=== PATIENT | male | born 1945 | race Caucasian/White ===

== ENCOUNTER 2016-12-12 14:49 | Emergency (ER) | payer OTHER ==
[~2016-12-12] VITALS: Ht 170.2 cm; Wt 88.7 kg
[~2016-12-12 14:49] MED LIST: ADVAIR 250-501 EACH IH; ADVAIR 250/501 DISK IH; ALBUTEROL0.63 MG/3 IH; ALUM-MAG HYDRO360 ML PO; AMLODIPINE BESYL5 MG PO; ASPIR 8181 M1 PO; ATORVASTATIN CA40 MG PO; AZITHROMYCIN250 MG1 PO; BROVANA15 MCG/2 M IH; CILOSTAZOL100 MG PO; CIPRO500 MG PO; COREG6.25 M1 PO; Coreg PO; DAILY VALUE1 EACH PO; DAILY VITE1 EAC1 PO; DUONEB 2.5-0.5 M3 ML AEROSOL; ENDOCET 5-3251 EACH PO; Ecotrin PO; FEOSOL325 MG PO; FINASTERIDE5 MG PO; GLIPIZIDE5 MG PO; GLUCOPHAGE1000 M1 PO; GLUCOPHAGE1000 MG PO; GLUCOSE GEL15 GM PO; GLUCOTROL5 MG PO; HUMALOG100 UNIT/2 SC; KLOR-CON 1010 MEQ PO; KLOR-CON M1010 MEQ PO; LANTUS 10100 UNITS/ SC; LANTUS 3 M100 UNITS1 SC; LASIX20 MG PO; LASIX40 MG PO; LEVAQUIN500 MG PO; LEVOTHYROXINE150 MCG PO; LIPITOR40 MG PO; LITE COAT ASPI325 M1 PO; LO-DOSE ASPIRIN81 M2 PO; LOTRIMIN C1 APPLICAT TP; METFORMIN HCL500 MG PO; MONTELUKAST SOD10 MG PO; MULTIVITAMIN1 EAC1 PO; NICODERM CQ1 EAC2 TD; NITROSTAT0.4 MG SL; NORVASC5 MG PO; OMEPRAZOLE20 M3 PO; OMEPRAZOLE20 MG PO; OMEPRAZOLE40 M1 PO; PERCOCET 5/31 TABLET PO; PHENERGAN12.5 M1 PO; PNEUMOVAX 230.5 ML IM; PREDNISONE5 M2 PO; PREDNISONE5 MG PO; PRILOSEC20 MG PO; PRINIVIL20 MG PO; PROVENTIL2.5 MG/3 M IH; PULMICORT1 MG/2 ML IH; ROBITUSSIN DM118 ML PO; ROBITUSSIN100 MG/5 M PO; SINGULAIR10 MG PO; SPIRIVA1 INHALATI IH; ST. JOSEPH ASPI81 MG PO; SYMBICORT60 INHALAT IH; SYNTHROID125 MCG PO; SYNTHROID150 MCG PO; Singulair PO; TAMSULOSIN HCL0.4 MG PO; TUSSIN DM LIQU118 ML PO; TYLENOL ARTHRI650 MG PO; TYLENOL REGULA325 MG PO; TYLENOL325 M1 PO; ULTRAM50 MG PO; ZESTRIL20 MG PO; ZOLOFT100 M1 PO; ZOLOFT100 MG PO; ZYVOX600 MG PO
[2016-12-12] MEDS ORDERED: CLARITIN10 M3 PO (15:01)
[2016-12-12] MEDS ORDERED: ADVAIR HFA120 INHALA IH (15:14)
[2016-12-12] MEDS ORDERED: ROBITUSSIN DM118 ML PO (15:21)
[2016-12-12 15:35] LABS: BASOPHIL COUNT 0.1 K/uL (0-0.1); EOSINOPHIL (%) 6.6 % (0-5); EOSINOPHIL COUNT 0.5 K/uL (0-0.3); HEMATOCRIT 30.4 % (38.0-50.0); IMMATURE GRANULOCYTE (%) 0.3 % (0.0-0.7); INSTRUMENT ABS NEUTROPHIL CT 4.9 K/uL; LYMPHOCYTE COUNT 1.3 K/uL (1.0-2.8); MCH 28.5 PG (29.0-34.0); MCHC 33.2 G/DL (30.0-36.0); MCV 85.9 FL (86-99); MEAN PLAT.VOLUME 8.7 uM^3 (9.0-12.4); MONOCYTE (%) 8.7 % (3-12); MONOCYTE COUNT 0.7 K/uL (0-0.8); NEUTROPHIL (%) 65.8 % (45-76); NEUTROPHIL COUNT 4.9 K/uL (1.8-6.4); PLATELET COUNT 223 K/uL (156-360); RBC DIS.WIDTH-CV 13.3 % (11.8-14.6); RBC DIS.WIDTH-SD 41.7 % (39-53); RED BLOOD COUNT 3.54 M/uL (4.00-5.50); WHITE BLOOD COUNT 7.4 K/uL (4.1-10.2)
[2016-12-12 15:44] LABS: CHLORIDE 106 mEq/L (99-109); POTASSIUM 3.2 mEq/L (3.7-5.4); SODIUM 140 mEq/L (136-147)
[2016-12-12 15:44] LABS: INTER. NORMALIZED RATIO 1.1; PROTHROMBIN TIME 10.9 (9.2-11.2)
[2016-12-12 15:46] LABS: GLUCOSE 160 mg/dL (70-99)
[2016-12-12 15:47] LABS: ANION GAP 11 MEQ/L (2-14)
[2016-12-12 15:48] LABS: TOTAL BILIRUBIN 0.3 mg/dL (0.0-1.0)
[2016-12-12 15:50] LABS: ALKALINE PHOSPHATASE 93 IU/L (3-129); GFR ESTIMATE (CALCULATED) 33 mL/min/
[2016-12-12 15:51] LABS: UREA NITROGEN (BUN) 33 mg/dL (9-23)
[2016-12-12 15:53] LABS: LIPASE 191 U/L (1.0-51.0)
[2016-12-12 15:55] LABS: TROP-I INTERPRETATION NEGATIVE; TROPONIN-I 0.09 ng/mL (0.0-0.30)
[2016-12-12 18:17] VITALS: BP 159/76
== END 2016-12-12 18:40 ==
LOC: EME → EDBD 14:49 → EME 14:49
PROVIDERS: Emergency Medicine
DX: R11.10 Vomiting, unspecified (principal); N28.9 Disorder of kidney and ureter, unspecified; I50.9 Heart failure, unspecified; E11.9 Type 2 diabetes mellitus without complications; Z79.4 Long term (current) use of insulin; E78.5 Hyperlipidemia, unspecified; K21.9 Gastro-esophageal reflux disease without esophagitis; I10 Essential (primary) hypertension; J44.9 Chronic obstructive pulmonary disease, unspecified; J45.909 Unspecified asthma, uncomplicated; I73.9 Peripheral vascular disease, unspecified; E03.9 Hypothyroidism, unspecified; F32.9 Major depressive disorder, single episode, unspecified; F41.9 Anxiety disorder, unspecified
CPT/HCPCS: 74022; 80053; 81003; 83690; 84484; 85025; 85610; 93005; 99281; 99285

== ENCOUNTER 2017-01-19 22:02 | Inpatient (IN) | payer OTHER ==
[~2017-01-19] VITALS: Ht 157.5 cm; Wt 87.6 kg
[~2017-01-19 22:02] MED LIST changes: +ADVAIR HFA120 INHALA IH; +CLARITIN10 M3 PO; +LEVOFLOXACIN750 MG PO; +ROCEPHIN1000 MG IM
[2017-01-19 22:35] LABS: HEMATOCRIT 28.4 % (38.0-50.0); MCH 27.6 PG (29.0-34.0); MCHC 30.6 G/DL (30.0-36.0); MCV 90.2 FL (86-99); MEAN PLAT.VOLUME 8.9 uM^3 (9.0-12.4); PLATELET COUNT 227 K/uL (156-360); RBC DIS.WIDTH-CV 14.9 % (11.8-14.6); RBC DIS.WIDTH-SD 47.5 % (39-53); RED BLOOD COUNT 3.15 M/uL (4.00-5.50); WHITE BLOOD COUNT 6.9 K/uL (4.1-10.2)
[2017-01-19 22:46] LABS: CHLORIDE 103 mEq/L (99-109); POTASSIUM 4.7 mEq/L (3.7-5.4)
[2017-01-19 22:47] LABS: SODIUM 134 mEq/L (136-147)
[2017-01-19 22:48] LABS: GLUCOSE 100 mg/dL (70-99)
[2017-01-19 22:49] LABS: ANION GAP 8 MEQ/L (2-14)
[2017-01-19 22:51] LABS: TOTAL BILIRUBIN 0.3 mg/dL (0.0-1.0)
[2017-01-19 22:52] LABS: ALKALINE PHOSPHATASE 73 IU/L (3-129)
[2017-01-19 22:52] LABS: GFR ESTIMATE (CALCULATED) 26 mL/min/; UREA NITROGEN (BUN) 39 mg/dL (9-23)
[2017-01-19 22:55] LABS: DIRECT BILIRUBIN 0.2 mg/dL (0.0-0.3)
[2017-01-19 22:56] LABS: LIPASE 35 U/L (1.0-51.0)
[2017-01-19 22:59] LABS: TROP-I INTERPRETATION NEGATIVE; TROPONIN-I 0.04 ng/mL (0.0-0.30)
[2017-01-20 03:24] VITALS: BP 109/59
[2017-01-20 06:02] LABS: POINT-OF-CARE METER ID UU13113725
[2017-01-20 09:57] VITALS: BP 95/58
[2017-01-20 15:51] LABS: ADD MIUA? NO; BILIRUBIN NEGATIVE; BLOOD NEGATIVE; COLOR STRAW ((YELLOW)); GLUCOSE (STRIP) NEGATIVE; KETONES NEGATIVE; LEUKOCYTES NEGATIVE; NITRITE NEGATIVE; PROTEIN (STRIP) NEGATIVE; SPECIFIC GRAVITY 1.008 (1.000-1.030); UCUL ADDED? NO; UROBILINOGEN 0.2 MG/DL (0.2-1.0)
[2017-01-20] MEDS ORDERED: ZOFRAN4 MG PO (16:05)
[2017-01-20 16:32] VITALS: BP 127/62
[2017-01-20 16:37] LABS: POINT-OF-CARE METER ID UU13113725
[2017-01-21] VITALS: BP 101/57
[2017-01-21 04:00] VITALS: BP 101/57
[2017-01-21 06:33] LABS: MCHC 30.8 G/DL (30.0-36.0); MCV 90.9 FL (86-99); PLATELET COUNT 189 K/uL (156-360); RBC DIS.WIDTH-SD 48.5 % (39-53); RED BLOOD COUNT 2.86 M/uL (4.00-5.50); WHITE BLOOD COUNT 5.1 K/uL (4.1-10.2)
[2017-01-21 07:00] VITALS: BP 100/58
[2017-01-21 07:12] LABS: ALKALINE PHOSPHATASE 62 IU/L (3-129); ANION GAP 8 MEQ/L (2-14); CHLORIDE 108 MEQ/L (99-109); GFR ESTIMATE (CALCULATED) 26 mL/min/; GLUCOSE 86 mg/dL (70-99); POTASSIUM 3.9 MEQ/L (3.7-5.4); SAMPLE HEMOLYSIS CHECK 0; SAMPLE ICTERIC CHECK 0; SAMPLE LIPEMIA CHECK 0; SODIUM 140 MEQ/L (136-147); TOTAL BILIRUBIN 0.3 MG/DL (0.0-1.0); UREA NITROGEN (BUN) 37 mg/dL (9-23)
[2017-01-21 11:46] LABS: POINT-OF-CARE METER ID UU13113725
[2017-01-21] MEDS ORDERED: LANTUS 10100 UNITS/ SC (12:13)
[2017-01-21] MEDS ORDERED: HUMALOG100 UNIT/1 SC (12:19)
[2017-01-21] MEDS ORDERED: LEVOFLOXACIN750 MG PO (12:22)
[2017-01-21 15:15] VITALS: BP 100/59
[2017-01-21 16:33] LABS: POINT-OF-CARE METER ID UU13113725
[2017-01-21 20:11] VITALS: BP 114/57
[2017-01-22] VITALS (14 sets, daily range): BP systolic 92–137; BP diastolic 55–78
[2017-01-22 07:08] LABS: BASOPHIL COUNT 0.1 K/uL (0-0.1); EOSINOPHIL (%) 6.3 % (0-5); EOSINOPHIL COUNT 0.3 K/uL (0-0.3); HEMATOCRIT 25.5 % (38.0-50.0); IMMATURE GRANULOCYTE (%) 0.2 % (0.0-0.7); INSTRUMENT ABS NEUTROPHIL CT 2.4 K/uL; LYMPHOCYTE COUNT 1.5 K/uL (1.0-2.8); MCH 28.2 PG (29.0-34.0); MCV 91.1 FL (86-99); MEAN PLAT.VOLUME 9.3 uM^3 (9.0-12.4); MONOCYTE (%) 10.6 % (3-12); MONOCYTE COUNT 0.5 K/uL (0-0.8); NEUTROPHIL (%) 50.1 % (45-76); NEUTROPHIL COUNT 2.4 K/uL (1.8-6.4); PLATELET COUNT 194 K/uL (156-360); RBC DIS.WIDTH-SD 49.6 % (39-53); WHITE BLOOD COUNT 4.8 K/uL (4.1-10.2)
[2017-01-22 07:25] LABS: ANION GAP 7 MEQ/L (2-14); CHLORIDE 108 MEQ/L (99-109); POTASSIUM 3.7 MEQ/L (3.7-5.4); SAMPLE HEMOLYSIS CHECK 0; SAMPLE ICTERIC CHECK 0; SAMPLE LIPEMIA CHECK 0; SODIUM 139 MEQ/L (136-147); TOTAL BILIRUBIN 0.3 MG/DL (0.0-1.0)
[2017-01-22 07:31] LABS: ALKALINE PHOSPHATASE 63 IU/L (3-129); GFR ESTIMATE (CALCULATED) 25 mL/min/; GLUCOSE 78 mg/dL (70-99); UREA NITROGEN (BUN) 31 mg/dL (9-23)
[2017-01-22 11:51] LABS: POINT-OF-CARE METER ID UU13113725
[2017-01-22 16:30] LABS: POINT-OF-CARE METER ID UU13113725
[2017-01-22 22:27] LABS: POINT-OF-CARE METER ID UU13113725
[2017-01-23 00:05] VITALS: BP 110/62
[2017-01-23 04:12] VITALS: BP 127/68
[2017-01-23 04:39] LABS: BASOPHIL COUNT 0.1 K/uL (0-0.1); EOSINOPHIL (%) 6.3 % (0-5); EOSINOPHIL COUNT 0.3 K/uL (0-0.3); IMMATURE GRANULOCYTE (%) 0.2 % (0.0-0.7); INSTRUMENT ABS NEUTROPHIL CT 2.9 K/uL; LYMPHOCYTE COUNT 1.5 K/uL (1.0-2.8); MCH 27.9 PG (29.0-34.0); MCHC 31.9 G/DL (30.0-36.0); MCV 87.4 FL (86-99); MEAN PLAT.VOLUME 8.7 uM^3 (9.0-12.4); MONOCYTE (%) 8.8 % (3-12); MONOCYTE COUNT 0.5 K/uL (0-0.8); NEUTROPHIL (%) 54.3 % (45-76); NEUTROPHIL COUNT 2.9 K/uL (1.8-6.4); PLATELET COUNT 196 K/uL (156-360); RBC DIS.WIDTH-SD 46.8 % (39-53); RED BLOOD COUNT 3.66 M/uL (4.00-5.50); WHITE BLOOD COUNT 5.4 K/uL (4.1-10.2)
[2017-01-23 04:44] LABS: CHLORIDE 106 mEq/L (99-109); POTASSIUM 3.6 mEq/L (3.7-5.4); SODIUM 138 mEq/L (136-147)
[2017-01-23 04:46] LABS: GLUCOSE 81 mg/dL (70-99)
[2017-01-23 04:47] LABS: ANION GAP 10 MEQ/L (2-14)
[2017-01-23 04:50] LABS: GFR ESTIMATE (CALCULATED) 27 mL/min/
[2017-01-23 04:51] LABS: UREA NITROGEN (BUN) 33 mg/dL (9-23)
[2017-01-23 08:31] VITALS: BP 103/60
[2017-01-23 11:39] VITALS: BP 110/65
[2017-01-23 17:52] VITALS: BP 132/61
[2017-01-23 19:40] VITALS: BP 109/59
[2017-01-24 00:35] VITALS: BP 98/52
[2017-01-24 04:51] VITALS: BP 104/53
[2017-01-24 05:25] LABS: POINT-OF-CARE METER ID UU13113725
[2017-01-24 06:43] LABS: HEMATOCRIT 31.3 % (38.0-50.0); MCH 28.6 PG (29.0-34.0); MCHC 31.9 G/DL (30.0-36.0); MCV 89.4 FL (86-99); MEAN PLAT.VOLUME 9.3 uM^3 (9.0-12.4); PLATELET COUNT 212 K/uL (156-360); RBC DIS.WIDTH-CV 15.3 % (11.8-14.6); RBC DIS.WIDTH-SD 48.9 % (39-53); WHITE BLOOD COUNT 5.8 K/uL (4.1-10.2)
[2017-01-24 07:19] LABS: ALKALINE PHOSPHATASE 65 IU/L (3-129); ANION GAP 8 MEQ/L (2-14); CHLORIDE 106 MEQ/L (99-109); GFR ESTIMATE (CALCULATED) 30 mL/min/; GLUCOSE 72 mg/dL (70-99); POTASSIUM 3.8 MEQ/L (3.7-5.4); SAMPLE HEMOLYSIS CHECK 0; SAMPLE ICTERIC CHECK 0; SAMPLE LIPEMIA CHECK 0; SODIUM 138 MEQ/L (136-147); UREA NITROGEN (BUN) 34 mg/dL (9-23)
[2017-01-24 07:24] LABS: TOTAL BILIRUBIN 0.4 MG/DL (0.0-1.0)
[2017-01-24 07:51] VITALS: BP 111/56
[2017-01-24 16:11] VITALS: BP 110/60
[2017-01-25 01:06] VITALS: BP 87/51
[2017-01-25 06:24] LABS: POINT-OF-CARE METER ID UU13113725
[2017-01-25 06:38] VITALS: BP 107/58
[2017-01-25 07:18] LABS: ANION GAP 6 MEQ/L (2-14); CHLORIDE 106 MEQ/L (99-109); GFR ESTIMATE (CALCULATED) 30 mL/min/; GLUCOSE 75 mg/dL (70-99); POTASSIUM 4.2 MEQ/L (3.7-5.4); SAMPLE HEMOLYSIS CHECK 0; SAMPLE ICTERIC CHECK 0; SAMPLE LIPEMIA CHECK 0; SODIUM 139 MEQ/L (136-147); UREA NITROGEN (BUN) 36 mg/dL (9-23)
[2017-01-25 08:18] VITALS: BP 99/60
[2017-01-25 16:52] LABS: POINT-OF-CARE METER ID UU13113725
[2017-01-25 17:19] VITALS: BP 101/58
[2017-01-25 17:21] LABS: POINT-OF-CARE METER ID UU13113725
[2017-01-25 21:53] LABS: POINT-OF-CARE METER ID UU13113725
[2017-01-25 23:08] VITALS: BP 93/56
[2017-01-26 07:25] VITALS: BP 98/61
[2017-01-26 07:27] LABS: POINT-OF-CARE METER ID UU13113725
[2017-01-26 11:15] LABS: POINT-OF-CARE METER ID UU13113725
[2017-01-26 15:42] VITALS: BP 137/86
[2017-01-26 16:24] LABS: POINT-OF-CARE METER ID UU13113725
[2017-01-26 21:28] LABS: POINT-OF-CARE METER ID UU13113725
[2017-01-27 00:01] VITALS: BP 109/56
[2017-01-27 08:01] VITALS: BP 106/57
[2017-01-27 11:37] LABS: POINT-OF-CARE METER ID UU13113725
[2017-01-27 14:28] VITALS: BP 105/56
[2017-01-27 20:43] LABS: POINT-OF-CARE METER ID UU13113725
[2017-01-27 23:15] VITALS: BP 102/60
[2017-01-28 06:00] LABS: HEMATOCRIT 32.9 % (38.0-50.0); MCHC 31.9 G/DL (30.0-36.0); MCV 90.9 FL (86-99); MEAN PLAT.VOLUME 9.3 uM^3 (9.0-12.4); PLATELET COUNT 173 K/uL (156-360); RBC DIS.WIDTH-CV 15.3 % (11.8-14.6); RBC DIS.WIDTH-SD 50.4 % (39-53); RED BLOOD COUNT 3.62 M/uL (4.00-5.50); WHITE BLOOD COUNT 6.5 K/uL (4.1-10.2)
[2017-01-28 06:36] LABS: ALKALINE PHOSPHATASE 72 IU/L (3-129); ANION GAP 7 MEQ/L (2-14); CHLORIDE 109 MEQ/L (99-109); GFR ESTIMATE (CALCULATED) 35 mL/min/; GLUCOSE 69 mg/dL (70-99); POTASSIUM 4.7 MEQ/L (3.7-5.4); SAMPLE HEMOLYSIS CHECK 0; SAMPLE ICTERIC CHECK 0; SAMPLE LIPEMIA CHECK 0; SODIUM 142 MEQ/L (136-147); TOTAL BILIRUBIN 0.4 MG/DL (0.0-1.0); UREA NITROGEN (BUN) 32 mg/dL (9-23)
[2017-01-28 06:38] LABS: POINT-OF-CARE METER ID UU13113725
[2017-01-28 09:17] VITALS: BP 102/51
[2017-01-28 11:06] LABS: POINT-OF-CARE METER ID UU13113725
[2017-01-28 16:00] VITALS: BP 115/58
[2017-01-28 16:41] LABS: POINT-OF-CARE METER ID UU13113725
[2017-01-28 21:24] LABS: POINT-OF-CARE METER ID UU13113725
[2017-01-28 23:52] VITALS: BP 103/53
[2017-01-29 06:19] LABS: POINT-OF-CARE METER ID UU13113725
[2017-01-29 08:25] VITALS: BP 126/71
[2017-01-29 11:09] LABS: POINT-OF-CARE METER ID UU13113725
[2017-01-29] MEDS ORDERED: PANTOPRAZOLE SO40 MG PO (12:50)
[2017-01-29 16:07] VITALS: BP 131/73
[2017-01-29 17:07] LABS: POINT-OF-CARE METER ID UU13113725
== END 2017-01-29 19:43 | DRG 178 ==
LOC: EME 22:02 → EDOF 01-20 01:57 → 5EAST 01-20 01:57
PROVIDERS: Emergency Medicine; Internal Medicine; Internal Medicine Nephrology
PROC: 30233N1 Transfusion of Nonautologous Red Blood Cells into Peripheral Vein, Percutaneous Approach (ICD-10-PCS; principal; 2017-01-22)
DX: J69.0 Pneumonitis due to inhalation of food and vomit (principal); N17.9 Acute kidney failure, unspecified; R09.02 Hypoxemia; J44.1 Chronic obstructive pulmonary disease with (acute) exacerbation; I50.9 Heart failure, unspecified; N28.1 Cyst of kidney, acquired; I95.9 Hypotension, unspecified; N13.30 Unspecified hydronephrosis; N18.5 Chronic kidney disease, stage 5; I25.10 Atherosclerotic heart disease of native coronary artery without angina pectoris; I13.0 Hypertensive heart and chronic kidney disease with heart failure and stage 1 through stage 4 chronic kidney disease, or unspecified chronic kidney disease; N40.1 Benign prostatic hyperplasia with lower urinary tract symptoms; R33.8 Other retention of urine; E78.5 Hyperlipidemia, unspecified; E86.0 Dehydration; K21.9 Gastro-esophageal reflux disease without esophagitis; K44.9 Diaphragmatic hernia without obstruction or gangrene; E11.22 Type 2 diabetes mellitus with diabetic chronic kidney disease; J44.0 Chronic obstructive pulmonary disease with (acute) lower respiratory infection; D64.9 Anemia, unspecified; E11.9 Type 2 diabetes mellitus without complications; N32.0 Bladder-neck obstruction; F17.210 Nicotine dependence, cigarettes, uncomplicated; Z87.01 Personal history of pneumonia (recurrent); Z88.0 Allergy status to penicillin; Z86.73 Personal history of transient ischemic attack (TIA), and cerebral infarction without residual deficits; Z79.4 Long term (current) use of insulin; Z89.429 Acquired absence of other toe(s), unspecified side; Z99.81 Dependence on supplemental oxygen; J98.11 Atelectasis; Z86.19 Personal history of other infectious and parasitic diseases; Z86.79 Personal history of other diseases of the circulatory system
CPT/HCPCS: 71010; 71020; 74176; 74230; 80048; 80053; 80076; 80202; 81003; 82565; 82948; 83605; 83690; 83880; 84484; 85025; 85027; 86860; 86870; 86880; 86900; 86901; 86905; 86920; 87040; 87086; 92611 GN; 93005; 94640; 94640 76; 94760; 94799; 99202; 99281; 99285; J0692; J1644; J1815; J1940; J1956; J2405; J3370; J7050; P9016

== ENCOUNTER 2017-06-30 15:52 | Emergency (ER) | payer OTHER ==
[~2017-06-30] VITALS: Ht 175.3 cm; Wt 90.0 kg
[~2017-06-30 15:52] MED LIST changes: +HUMALOG100 UNIT/1 SC; +PANTOPRAZOLE SO40 MG PO; +ZOFRAN4 MG PO
[2017-06-30 17:02] LABS: HEMATOCRIT 29.3 % (38.0-50.0); MCH 29.9 PG (29.0-34.0); MCHC 32.8 G/DL (30.0-36.0); MCV 91.3 FL (86-99); MEAN PLAT.VOLUME 8.5 uM^3 (9.0-12.4); PLATELET COUNT 196 K/uL (156-360); RBC DIS.WIDTH-CV 13.2 % (11.8-14.6); RBC DIS.WIDTH-SD 44.6 % (39-53); RED BLOOD COUNT 3.21 M/uL (4.00-5.50); WHITE BLOOD COUNT 8.4 K/uL (4.1-10.2)
[2017-06-30 17:11] LABS: CHLORIDE 106 mEq/L (99-109); POTASSIUM 3.4 mEq/L (3.7-5.4); SODIUM 141 mEq/L (136-147)
[2017-06-30 17:14] LABS: GLUCOSE 130 mg/dL (70-99)
[2017-06-30 17:15] LABS: ANION GAP 11 MEQ/L (2-14); TOTAL BILIRUBIN 0.4 mg/dL (0.0-1.0)
[2017-06-30 17:17] LABS: ALKALINE PHOSPHATASE 79 IU/L (3-129); GFR ESTIMATE (CALCULATED) 35 mL/min/
[2017-06-30 17:18] LABS: UREA NITROGEN (BUN) 29 mg/dL (9-23)
[2017-06-30 17:24] LABS: TROP-I INTERPRETATION NEGATIVE; TROPONIN-I 0.06 ng/mL (0.0-0.30)
[2017-06-30] MEDS ORDERED: PROVENTIL,2.5 MG/3 M IH (18:58)
[2017-06-30 20:15] VITALS: BP 130/63
== END 2017-06-30 20:29 ==
LOC: EME 15:52
PROVIDERS: Nurse Practitioner Family
DX: J06.9 Acute upper respiratory infection, unspecified (principal); R06.2 Wheezing; R09.89 Other specified symptoms and signs involving the circulatory and respiratory systems; I50.9 Heart failure, unspecified; E11.9 Type 2 diabetes mellitus without complications; I11.0 Hypertensive heart disease with heart failure; J44.9 Chronic obstructive pulmonary disease, unspecified; E78.5 Hyperlipidemia, unspecified; Z86.73 Personal history of transient ischemic attack (TIA), and cerebral infarction without residual deficits; Z99.81 Dependence on supplemental oxygen; Z87.891 Personal history of nicotine dependence; Z88.0 Allergy status to penicillin; Z79.4 Long term (current) use of insulin; E03.9 Hypothyroidism, unspecified
CPT/HCPCS: 71020; 80053; 83605; 83880; 84484; 85027; 87040; 87502; 93005; 94640; 99281; 99285; J1100; J7644

== ENCOUNTER 2017-07-07 01:03 | Observation (INO) | payer OTHER ==
[~2017-07-07] VITALS: Ht 175.3 cm; Wt 82.9 kg
[~2017-07-07 01:03] MED LIST changes: +PROVENTIL,2.5 MG/3 M IH
[2017-07-07 01:37] LABS: HEMATOCRIT 29.1 % (38.0-50.0); MCH 29.9 PG (29.0-34.0); MCV 90.7 FL (86-99); MEAN PLAT.VOLUME 8.2 uM^3 (9.0-12.4); PLATELET COUNT 216 K/uL (156-360); RBC DIS.WIDTH-CV 12.9 % (11.8-14.6); RBC DIS.WIDTH-SD 42.6 % (39-53); RED BLOOD COUNT 3.21 M/uL (4.00-5.50); WHITE BLOOD COUNT 9.1 K/uL (4.1-10.2)
[2017-07-07 01:47] LABS: CHLORIDE 107 mEq/L (99-109); POTASSIUM 3.2 mEq/L (3.7-5.4); SODIUM 139 mEq/L (136-147)
[2017-07-07 01:49] LABS: GLUCOSE 120 mg/dL (70-99)
[2017-07-07 01:51] LABS: ANION GAP 8 MEQ/L (2-14)
[2017-07-07 01:52] LABS: TOTAL BILIRUBIN 0.2 mg/dL (0.0-1.0)
[2017-07-07 01:53] LABS: ALKALINE PHOSPHATASE 75 IU/L (3-129); GFR ESTIMATE (CALCULATED) 35 mL/min/
[2017-07-07 01:54] LABS: UREA NITROGEN (BUN) 33 mg/dL (9-23)
[2017-07-07 02:13] LABS: BASOPHIL COUNT 0.1 K/uL (0-0.1); EOSINOPHIL COUNT 0.5 K/uL (0-0.3); IMMATURE GRANULOCYTE COUNT 0.1 K/uL; INSTRUMENT ABS NEUTROPHIL CT 5.3 K/uL; LYMPHOCYTE COUNT 2.3 K/uL (1.0-2.8); MONOCYTE (%) 9.8 % (3-12); MONOCYTE COUNT 0.9 K/uL (0-0.8); NEUTROPHIL COUNT 5.3 K/uL (1.8-6.4)
[2017-07-07 02:32] LABS: TROP-I INTERPRETATION NEGATIVE; TROPONIN-I 0.05 ng/mL (0.0-0.30)
[2017-07-07 05:30] VITALS: BP 130/63
[2017-07-07 07:47] VITALS: BP 136/63
[2017-07-07 08:35] LABS: POINT-OF-CARE METER ID UU14162513
[2017-07-07 11:28] VITALS: BP 130/63
[2017-07-07 12:19] LABS: POINT-OF-CARE METER ID UU14162513
[2017-07-07 15:57] VITALS: BP 115/60
[2017-07-07 17:41] LABS: POINT-OF-CARE METER ID UU13113700
[2017-07-07 20:24] VITALS: BP 115/62
[2017-07-07 21:44] LABS: POINT-OF-CARE METER ID UU14162513
[2017-07-07 23:00] VITALS: BP 123/57
[2017-07-08 03:56] VITALS: BP 128/68
[2017-07-08 05:28] LABS: HEMATOCRIT 29.3 % (38.0-50.0); MCH 29.4 PG (29.0-34.0); MCHC 32.8 G/DL (30.0-36.0); MCV 89.6 FL (86-99); MEAN PLAT.VOLUME 8.5 uM^3 (9.0-12.4); PLATELET COUNT 255 K/uL (156-360); RBC DIS.WIDTH-CV 12.8 % (11.8-14.6); RBC DIS.WIDTH-SD 41.8 % (39-53); RED BLOOD COUNT 3.27 M/uL (4.00-5.50); WHITE BLOOD COUNT 13.7 K/uL (4.1-10.2)
[2017-07-08 06:05] LABS: ANION GAP 10 MEQ/L (2-14); CHLORIDE 105 MEQ/L (99-109); GFR ESTIMATE (CALCULATED) 33 mL/min/; SAMPLE HEMOLYSIS CHECK 0; SAMPLE ICTERIC CHECK 0; SAMPLE LIPEMIA CHECK 0; SODIUM 138 MEQ/L (136-147); UREA NITROGEN (BUN) 47 mg/dL (9-23)
[2017-07-08 06:14] LABS: GLUCOSE 210 mg/dL (70-99); POTASSIUM 4.1 MEQ/L (3.7-5.4)
[2017-07-08 07:30] LABS: Estimated Average Glucose 140 mg/dL (70-123); HEMOGLOBIN A1c (GLYCOHEMOGLOB) 6.5 % HGB (Below 5.7)
[2017-07-08] MEDS ORDERED: ZITHROMAX250 MG PO (17:57)
[2017-07-08] MEDS ORDERED: DUONEB 2.5-0.5 M3 ML AEROSOL (18:03)
[2017-07-08 18:11] LABS: POINT-OF-CARE METER ID UU13113700
[2017-07-08 19:49] VITALS: BP 123/60
== END 2017-07-08 21:27 ==
LOC: EME → EDBD 01:03 → EME 01:03 → EDOF 03:36 → 5WEST 03:36 → ENRESERV 03:38 → 5WEST 05:06
PROVIDERS: Emergency Medicine; Family Medicine
DX: J44.1 Chronic obstructive pulmonary disease with (acute) exacerbation (principal); J44.0 Chronic obstructive pulmonary disease with (acute) lower respiratory infection; J18.9 Pneumonia, unspecified organism; Z87.01 Personal history of pneumonia (recurrent); Z99.81 Dependence on supplemental oxygen; F17.210 Nicotine dependence, cigarettes, uncomplicated; I12.9 Hypertensive chronic kidney disease with stage 1 through stage 4 chronic kidney disease, or unspecified chronic kidney disease; N18.3 Chronic kidney disease, stage 3 (moderate); E11.22 Type 2 diabetes mellitus with diabetic chronic kidney disease; E87.6 Hypokalemia; E78.5 Hyperlipidemia, unspecified; K21.9 Gastro-esophageal reflux disease without esophagitis; N40.0 Benign prostatic hyperplasia without lower urinary tract symptoms; F32.9 Major depressive disorder, single episode, unspecified; D64.9 Anemia, unspecified; E03.9 Hypothyroidism, unspecified; Z86.73 Personal history of transient ischemic attack (TIA), and cerebral infarction without residual deficits; M19.90 Unspecified osteoarthritis, unspecified site; E11.51 Type 2 diabetes mellitus with diabetic peripheral angiopathy without gangrene; Z88.0 Allergy status to penicillin; Z88.8 Allergy status to other drugs, medicaments and biological substances; Z79.4 Long term (current) use of insulin
CPT/HCPCS: 71010; 71250; 80048; 80053; 82948; 83036; 83880; 84484; 85025; 85027; 93005; 94640; 94640 76; 94760; 94799; 99202; 99281; 99285; G0378; J0456; J0696; J2270; J2930

== ENCOUNTER 2017-10-01 14:44 | Inpatient (IN) | payer OTHER ==
[~2017-10-01] VITALS: Ht 167.6 cm; Wt 87.1 kg
[~2017-10-01 14:44] MED LIST changes: +ZITHROMAX250 MG PO
[2017-10-01 15:37] LABS: HEMATOCRIT 28.7 % (38.0-50.0); HEMOGLOBIN 9.6 G/DL (12.5-16.6); MCH 29.4 PG (29.0-34.0); MCHC 33.4 G/DL (30.0-36.0); MCV 87.8 FL (86-99); PLATELET COUNT 296 K/uL (156-360); RBC DIS.WIDTH-CV 12.8 % (11.8-14.6); RBC DIS.WIDTH-SD 40.9 % (39-53); RED BLOOD COUNT 3.27 M/uL (4.00-5.50); WHITE BLOOD COUNT 9.4 K/uL (4.1-10.2)
[2017-10-01 15:46] LABS: ALBUMIN 3.2 g/dL (3.2-4.8); CHLORIDE 108 mEq/L (99-109); POTASSIUM 3.5 mEq/L (3.7-5.4); SODIUM 141 mEq/L (136-147)
[2017-10-01 15:47] LABS: MAGNESIUM 2.1 mg/dL (1.3-2.7)
[2017-10-01 15:49] LABS: GLUCOSE 118 mg/dL (70-99); TOTAL PROTEIN 7.3 g/dL (6.4-8.3)
[2017-10-01 15:51] LABS: TOTAL BILIRUBIN 0.2 mg/dL (0.0-1.0)
[2017-10-01 15:52] LABS: ALKALINE PHOSPHATASE 89 IU/L (3-129)
[2017-10-01 15:53] LABS: CREATININE 1.8 mg/dL (0.6-1.3); GFR ESTIMATE (CALCULATED) 40 mL/min/ (58.99-99999)
[2017-10-01 15:54] LABS: AST (GOT) 20 IU/L (2-34); UREA NITROGEN (BUN) 31 mg/dL (9-23)
[2017-10-01 15:56] LABS: ALT (GPT) 42 IU/L (3-49)
[2017-10-01 15:57] LABS: TROP-I INTERPRETATION NEGATIVE; TROPONIN-I 0.05 ng/mL (0.0-0.30)
[2017-10-01 16:07] LABS: APPEARANCE CLEAR ((CLEAR)); BILIRUBIN NEGATIVE; BLOOD SMALL; COLOR STRAW ((YELLOW)); GLUCOSE (STRIP) NEGATIVE; KETONES NEGATIVE; LEUKOCYTES LARGE; NITRITE NEGATIVE; PROTEIN (STRIP) NEGATIVE; SPECIFIC GRAVITY 1.006 (1.000-1.030); UROBILINOGEN 0.2 MG/DL (0.2-1.0)
[2017-10-01 16:10] LABS: BACTERIA RARE /HPF; EPITHELIAL CELLS NONE SEEN /HPF; MUCUS TRACE /LPF; UCUL ADDED? YES; WHITE BLOOD CELLS 30-40 /HPF (0-5)
[2017-10-01 16:28] LABS: ABS NEUTROPHIL COUNT 6.7; ANISOCYTOSIS 1+; BAND NEUTROPHILS 34.8 % (0-8.0); EOSINOPHIL ABS CT 0.7; EOSINOPHILS 7.2 % (0-5.0); LYMPHOCYTES 12.5 % (15.0-45.0); MYELOCYTES 0.9 %; PLAT.SUFFICIENCY ADEQUATE; POIKILOCYTOSIS 1+; SEG.NEUTROPHILS 36.6 % (46.0-76.0); SPHEROCYTES 1+
[2017-10-01] MEDS ORDERED: SYNTHROID150 MCG PO (16:47)
[2017-10-01] MEDS ORDERED: ZANTAC150 MG PO (16:49)
[2017-10-01] MEDS ORDERED: ADVAIR HFA120 INHALA IH (16:50)
[2017-10-01] MEDS ORDERED: DUONEB 2.5-0.5 M3 ML AEROSOL (16:51)
[2017-10-01] MEDS ORDERED: GLUCO BURST37.5 GM PO (16:52)
[2017-10-01] MEDS ORDERED: ROBITUSSIN DM118 ML PO (16:53)
[2017-10-01] MEDS ORDERED: NITROSTAT0.4 MG SL (16:53)
[2017-10-01 19:28] VITALS: BP 109/54
[2017-10-01 23:22] LABS: TROP-I INTERPRETATION NEGATIVE; TROPONIN-I 0.06 ng/mL (0.0-0.30)
[2017-10-02] VITALS (7 sets, daily range): BP systolic 104–147; BP diastolic 53–66
[2017-10-02 06:47] LABS: TROP-I INTERPRETATION NEGATIVE; TROPONIN-I 0.07 ng/mL (0.0-0.30)
[2017-10-03 06:53] LABS: HEMATOCRIT 31.4 % (38.0-50.0); HEMOGLOBIN 9.9 G/DL (12.5-16.6); MCH 28.7 PG (29.0-34.0); MCHC 31.5 G/DL (30.0-36.0); PLATELET COUNT 276 K/uL (156-360); RBC DIS.WIDTH-CV 13.2 % (11.8-14.6); RBC DIS.WIDTH-SD 43.4 % (39-53); RED BLOOD COUNT 3.45 M/uL (4.00-5.50); WHITE BLOOD COUNT 8.4 K/uL (4.1-10.2)
[2017-10-03 07:18] LABS: CHLORIDE 109 MEQ/L (99-109); CREATININE 1.9 MG/DL (0.6-1.3); GFR ESTIMATE (CALCULATED) 37 mL/min/ (58.99-99999); GLUCOSE 103 mg/dL (70-99); POTASSIUM 4.2 MEQ/L (3.7-5.4); SODIUM 146 MEQ/L (136-147); UREA NITROGEN (BUN) 30 mg/dL (9-23)
[2017-10-03 07:32] VITALS: BP 134/71
[2017-10-03 08:13] VITALS: BP 140/72
[2017-10-03 11:00] VITALS: BP 130/73
[2017-10-03 16:43] VITALS: BP 136/70
[2017-10-03 23:45] VITALS: BP 118/77
[2017-10-04 07:22] VITALS: BP 114/60
[2017-10-04 07:58] VITALS: BP 144/73
[2017-10-04 11:10] VITALS: BP 122/62
[2017-10-04] MEDS ORDERED: CEFTRIAXONE1 G1 IV (13:27)
[2017-10-04 16:30] VITALS: BP 129/65
== END 2017-10-04 17:53 | DRG 194 ==
LOC: EME 14:44 → EDOF 16:40 → 5EAST 16:40 → ENRESERV 16:58 → 5EAST 18:59
PROVIDERS: Emergency Medicine; Family Medicine
DX: J18.9 Pneumonia, unspecified organism (principal); J44.0 Chronic obstructive pulmonary disease with (acute) lower respiratory infection; J20.9 Acute bronchitis, unspecified; J44.1 Chronic obstructive pulmonary disease with (acute) exacerbation; N39.0 Urinary tract infection, site not specified; B96.4 Proteus (mirabilis) (morganii) as the cause of diseases classified elsewhere; I13.0 Hypertensive heart and chronic kidney disease with heart failure and stage 1 through stage 4 chronic kidney disease, or unspecified chronic kidney disease; I50.9 Heart failure, unspecified; E11.22 Type 2 diabetes mellitus with diabetic chronic kidney disease; N18.4 Chronic kidney disease, stage 4 (severe); D64.9 Anemia, unspecified; E03.9 Hypothyroidism, unspecified; E78.5 Hyperlipidemia, unspecified; E11.51 Type 2 diabetes mellitus with diabetic peripheral angiopathy without gangrene; K21.9 Gastro-esophageal reflux disease without esophagitis; I25.10 Atherosclerotic heart disease of native coronary artery without angina pectoris; N40.1 Benign prostatic hyperplasia with lower urinary tract symptoms; R33.8 Other retention of urine; I27.20 Pulmonary hypertension, unspecified; G89.4 Chronic pain syndrome; N13.30 Unspecified hydronephrosis; F32.9 Major depressive disorder, single episode, unspecified; F41.9 Anxiety disorder, unspecified; E66.9 Obesity, unspecified; Z79.82 Long term (current) use of aspirin; Z79.4 Long term (current) use of insulin; Z87.891 Personal history of nicotine dependence; Z68.30 Body mass index [BMI] 30.0-30.9, adult; Z88.0 Allergy status to penicillin
CPT/HCPCS: 71250; 74176; 80048; 80053; 81003; 82948; 83735; 84484; 85025; 85027; 87040; 87077; 87086; 87186; 93005; 94640; 94640 76; 94799; 99202; 99281; 99285; J0456; J0696; J1815; J1956; J2405; J3010; J7512

== ENCOUNTER 2017-10-20 16:54 | Emergency (ER) | payer OTHER ==
[~2017-10-20] VITALS: Ht 175.3 cm; Wt 105.0 kg
[~2017-10-20 16:54] MED LIST changes: +CEFTRIAXONE1 G1 IV; +GLUCO BURST37.5 GM PO; +ZANTAC150 MG PO
[2017-10-20 17:47] LABS: HEMATOCRIT 30.2 % (38.0-50.0); HEMOGLOBIN 9.7 G/DL (12.5-16.6); MCHC 32.1 G/DL (30.0-36.0); MCV 90.1 FL (86-99); PLATELET COUNT 206 K/uL (156-360); RBC DIS.WIDTH-CV 14.5 % (11.8-14.6); RBC DIS.WIDTH-SD 47.7 % (39-53); RED BLOOD COUNT 3.35 M/uL (4.00-5.50)
[2017-10-20 17:55] LABS: ALBUMIN 3.4 g/dL (3.2-4.8); CHLORIDE 107 mEq/L (99-109); POTASSIUM 3.9 mEq/L (3.7-5.4); SODIUM 142 mEq/L (136-147)
[2017-10-20 17:57] LABS: GLUCOSE 120 mg/dL (70-99); TOTAL PROTEIN 7.3 g/dL (6.4-8.3)
[2017-10-20 17:59] LABS: TOTAL BILIRUBIN 0.3 mg/dL (0.0-1.0)
[2017-10-20 18:01] LABS: ALKALINE PHOSPHATASE 84 IU/L (3-129); GFR ESTIMATE (CALCULATED) 35 mL/min/ (58.99-99999)
[2017-10-20 18:02] LABS: UREA NITROGEN (BUN) 28 mg/dL (9-23)
[2017-10-20 18:03] LABS: AST (GOT) 13 IU/L (2-34)
[2017-10-20 18:04] LABS: ALT (GPT) 15 IU/L (3-49)
[2017-10-20] MEDS ORDERED: ULTRAM50 MG PO (20:57)
[2017-10-20 21:58] VITALS: BP 134/56
== END 2017-10-20 21:59 ==
LOC: EME 16:54
PROVIDERS: Emergency Medicine
DX: S30.0XXA Contusion of lower back and pelvis, initial encounter (principal); W19.XXXA Unspecified fall, initial encounter; J45.909 Unspecified asthma, uncomplicated; E78.5 Hyperlipidemia, unspecified; I11.0 Hypertensive heart disease with heart failure; I50.9 Heart failure, unspecified; Z99.81 Dependence on supplemental oxygen; E03.9 Hypothyroidism, unspecified; E11.9 Type 2 diabetes mellitus without complications; Z79.82 Long term (current) use of aspirin; F32.9 Major depressive disorder, single episode, unspecified; K21.9 Gastro-esophageal reflux disease without esophagitis; F41.9 Anxiety disorder, unspecified; Z88.0 Allergy status to penicillin; Z87.891 Personal history of nicotine dependence; Z86.79 Personal history of other diseases of the circulatory system
CPT/HCPCS: 72131; 72192; 80053; 85027; 99281; 99285

== ENCOUNTER 2017-11-16 22:40 | Inpatient (IN) | payer OTHER ==
[~2017-11-16] VITALS: Ht 177.8 cm; Wt 90.2 kg
[2017-11-17 00:01] LABS: BASOPHIL (%) 0.5 % (0-1); EOSINOPHIL (%) 4.2 % (0-5); EOSINOPHIL COUNT 0.2 K/uL (0-0.3); HEMATOCRIT 27.9 % (38.0-50.0); HEMOGLOBIN 9.2 G/DL (12.5-16.6); IMMATURE GRANULOCYTE (%) 0.3 % (0.0-0.7); LYMPHOCYTE (%) 17.2 % (15-42); MCH 29.2 PG (29.0-34.0); MCV 88.6 FL (86-99); MONOCYTE (%) 11.5 % (3-12); MONOCYTE COUNT 0.7 K/uL (0-0.8); NEUTROPHIL (%) 66.3 % (45-76); NEUTROPHIL COUNT 3.8 K/uL (1.8-6.4); PLATELET COUNT 174 K/uL (156-360); RBC DIS.WIDTH-CV 14.4 % (11.8-14.6); RBC DIS.WIDTH-SD 46.5 % (39-53); RED BLOOD COUNT 3.15 M/uL (4.00-5.50); WHITE BLOOD COUNT 5.7 K/uL (4.1-10.2)
[2017-11-17 00:09] LABS: ALBUMIN 3.4 g/dL (3.2-4.8)
[2017-11-17 00:10] LABS: CHLORIDE 106 mEq/L (99-109); POTASSIUM 3.2 mEq/L (3.7-5.4); SODIUM 137 mEq/L (136-147)
[2017-11-17 00:12] LABS: GLUCOSE 121 mg/dL (70-99)
[2017-11-17 00:14] LABS: TOTAL BILIRUBIN 0.2 mg/dL (0.0-1.0)
[2017-11-17 00:15] LABS: ALKALINE PHOSPHATASE 86 IU/L (3-129)
[2017-11-17 00:16] LABS: CREATININE 1.9 mg/dL (0.6-1.3); GFR ESTIMATE (CALCULATED) 37 mL/min/ (58.99-99999)
[2017-11-17 00:17] LABS: AST (GOT) 20 IU/L (2-34); UREA NITROGEN (BUN) 33 mg/dL (9-23)
[2017-11-17 00:19] LABS: ALT (GPT) 16 IU/L (3-49)
[2017-11-17 00:22] LABS: TROP-I INTERPRETATION NEGATIVE; TROPONIN-I 0.05 ng/mL (0.0-0.30)
[2017-11-17] MEDS ORDERED: ASCORBIC ACID250 MG PO (01:28)
[2017-11-17] MEDS ORDERED: ROCEPHIN1000 MG IM (01:29)
[2017-11-17] MEDS ORDERED: FUROSEMIDE20 MG PO (01:30)
[2017-11-17] MEDS ORDERED: OXYCODONE HCL5 MG PO (01:31)
[2017-11-17] MEDS ORDERED: AZITHROMYCIN250 MG1 PO ×2 (01:32→01:33)
[2017-11-17] MEDS ORDERED: BREO ELLIPTA I1 EACH IH (01:33)
[2017-11-17] MEDS ORDERED: DUONEB 2.5-0.5 M3 ML AEROSOL (01:52)
[2017-11-17 03:07] VITALS: BP 171/74
[2017-11-17 04:37] VITALS: BP 142/68
[2017-11-17 12:30] VITALS: BP 140/62
[2017-11-17 16:30] VITALS: BP 144/74
[2017-11-17 20:08] VITALS: BP 135/62
[2017-11-17 23:56] VITALS: BP 121/58
[2017-11-18 08:42] VITALS: BP 123/61
[2017-11-18 12:08] VITALS: BP 128/60
[2017-11-18 16:54] VITALS: BP 132/60
[2017-11-18 21:20] VITALS: BP 158/64
[2017-11-18 23:30] VITALS: BP 137/63
[2017-11-19 04:11] VITALS: BP 152/74
[2017-11-19 05:52] LABS: HEMATOCRIT 27.1 % (38.0-50.0); HEMOGLOBIN 8.9 G/DL (12.5-16.6); MCH 28.9 PG (29.0-34.0); MCHC 32.8 G/DL (30.0-36.0); PLATELET COUNT 210 K/uL (156-360); RBC DIS.WIDTH-CV 14.2 % (11.8-14.6); RBC DIS.WIDTH-SD 45.2 % (39-53); RED BLOOD COUNT 3.08 M/uL (4.00-5.50); WHITE BLOOD COUNT 10.4 K/uL (4.1-10.2)
[2017-11-19 06:18] LABS: ALBUMIN 3.2 G/DL (3.2-4.8); ALKALINE PHOSPHATASE 67 IU/L (3-129); ALT (GPT) 16 IU/L (3-49); AST (GOT) 17 IU/L (2-34); CHLORIDE 108 MEQ/L (99-109); GFR ESTIMATE (CALCULATED) 35 mL/min/ (58.99-99999); GLUCOSE 133 mg/dL (70-99); POTASSIUM 3.6 MEQ/L (3.7-5.4); SODIUM 137 MEQ/L (136-147); TOTAL BILIRUBIN 0.2 MG/DL (0.0-1.0)
[2017-11-19 06:19] LABS: UREA NITROGEN (BUN) 52 mg/dL (9-23)
[2017-11-19 07:53] VITALS: BP 140/78
[2017-11-19 12:17] VITALS: BP 138/70
[2017-11-19 16:30] VITALS: BP 130/76
[2017-11-19 20:00] VITALS: BP 111/56
[2017-11-20] VITALS: BP 132/64
[2017-11-20 03:58] VITALS: BP 154/74
[2017-11-20 11:56] VITALS: BP 152/72
[2017-11-20] MEDS ORDERED: DUONEB 2.5-0.5 M3 ML AEROSOL (13:58)
[2017-11-20] MEDS ORDERED: LEVAQUIN500 MG PO (14:02)
== END 2017-11-20 16:57 | DRG 194 ==
LOC: EME 22:40 → EDOF 11-17 01:21 → 3EAST 11-17 01:21 → ENRESERV 11-17 01:22 → 3EAST 11-17 02:31
PROVIDERS: Emergency Medicine; Internal Medicine
DX: J18.9 Pneumonia, unspecified organism (principal); J44.0 Chronic obstructive pulmonary disease with (acute) lower respiratory infection; J44.1 Chronic obstructive pulmonary disease with (acute) exacerbation; Z99.81 Dependence on supplemental oxygen; I13.2 Hypertensive heart and chronic kidney disease with heart failure and with stage 5 chronic kidney disease, or end stage renal disease; E11.22 Type 2 diabetes mellitus with diabetic chronic kidney disease; I50.9 Heart failure, unspecified; N18.5 Chronic kidney disease, stage 5; E11.51 Type 2 diabetes mellitus with diabetic peripheral angiopathy without gangrene; R06.03 Acute respiratory distress; N40.1 Benign prostatic hyperplasia with lower urinary tract symptoms; N13.8 Other obstructive and reflux uropathy; I27.20 Pulmonary hypertension, unspecified; I25.10 Atherosclerotic heart disease of native coronary artery without angina pectoris; D64.9 Anemia, unspecified; E03.9 Hypothyroidism, unspecified; E78.5 Hyperlipidemia, unspecified; E87.6 Hypokalemia; K21.9 Gastro-esophageal reflux disease without esophagitis; M19.90 Unspecified osteoarthritis, unspecified site; M54.5 Low back pain; G89.29 Other chronic pain; E66.9 Obesity, unspecified; Z68.28 Body mass index [BMI] 28.0-28.9, adult; F32.9 Major depressive disorder, single episode, unspecified; F41.9 Anxiety disorder, unspecified; Z72.0 Tobacco use; Z79.82 Long term (current) use of aspirin; Z87.01 Personal history of pneumonia (recurrent); Z87.442 Personal history of urinary calculi; Z86.79 Personal history of other diseases of the circulatory system
CPT/HCPCS: 71046; 80053; 82948; 83605; 83880; 84484; 85025; 85027; 87040; 87641; 93005; 94640; 94640 76; 94799; 99202; 99281; 99285; J0456; J0692; J1644; J1815; J2930

== ENCOUNTER 2017-11-27 18:20 | Inpatient (IN) | payer OTHER ==
[~2017-11-27] VITALS: Ht 188 cm; Wt 89.5 kg
[~2017-11-27 18:20] MED LIST changes: +ASCORBIC ACID250 MG PO; +BREO ELLIPTA I1 EACH IH; +FUROSEMIDE20 MG PO; +OXYCODONE HCL5 MG PO
[2017-11-27 19:22] LABS: BASOPHIL (%) 0.2 % (0-1); EOSINOPHIL (%) 0.6 % (0-5); EOSINOPHIL COUNT 0.1 K/uL (0-0.3); HEMATOCRIT 29.3 % (38.0-50.0); HEMOGLOBIN 9.6 G/DL (12.5-16.6); IMMATURE GRANULOCYTE (%) 0.5 % (0.0-0.7); LYMPHOCYTE (%) 6.2 % (15-42); LYMPHOCYTE COUNT 0.9 K/uL (1.0-2.8); MCH 28.9 PG (29.0-34.0); MCHC 32.8 G/DL (30.0-36.0); MCV 88.3 FL (86-99); MONOCYTE (%) 9.1 % (3-12); MONOCYTE COUNT 1.4 K/uL (0-0.8); NEUTROPHIL (%) 83.4 % (45-76); NEUTROPHIL COUNT 12.4 K/uL (1.8-6.4); PLATELET COUNT 150 K/uL (156-360); RBC DIS.WIDTH-CV 14.2 % (11.8-14.6); RBC DIS.WIDTH-SD 46.1 % (39-53); RED BLOOD COUNT 3.32 M/uL (4.00-5.50); WHITE BLOOD COUNT 14.9 K/uL (4.1-10.2)
[2017-11-27 19:54] LABS: ALBUMIN 3.3 g/dL (3.2-4.8); CHLORIDE 104 mEq/L (99-109); POTASSIUM 3.7 mEq/L (3.7-5.4); SODIUM 139 mEq/L (136-147)
[2017-11-27 19:56] LABS: GLUCOSE 110 mg/dL (70-99); TOTAL PROTEIN 7.8 g/dL (6.4-8.3)
[2017-11-27 19:58] LABS: TOTAL BILIRUBIN 0.5 mg/dL (0.0-1.0)
[2017-11-27 20:00] LABS: ALKALINE PHOSPHATASE 77 IU/L (3-129); CREATININE 1.7 mg/dL (0.6-1.3); GFR ESTIMATE (CALCULATED) 42 mL/min/ (58.99-99999)
[2017-11-27 20:01] LABS: AST (GOT) 16 IU/L (2-34); UREA NITROGEN (BUN) 25 mg/dL (9-23)
[2017-11-27 20:03] LABS: ALT (GPT) 21 IU/L (3-49)
[2017-11-27 20:04] LABS: TROP-I INTERPRETATION NEGATIVE; TROPONIN-I 0.08 ng/mL (0.0-0.30)
[2017-11-28] VITALS (8 sets, daily range): BP systolic 106–147; BP diastolic 57–70
[2017-11-29 03:45] VITALS: BP 115/56
[2017-11-29 06:25] LABS: HEMATOCRIT 26.3 % (38.0-50.0); HEMOGLOBIN 8.5 G/DL (12.5-16.6); MCHC 32.3 G/DL (30.0-36.0); MCV 89.8 FL (86-99); PLATELET COUNT 158 K/uL (156-360); RBC DIS.WIDTH-CV 14.3 % (11.8-14.6); RBC DIS.WIDTH-SD 46.6 % (39-53); RED BLOOD COUNT 2.93 M/uL (4.00-5.50); WHITE BLOOD COUNT 12.7 K/uL (4.1-10.2)
[2017-11-29 06:44] LABS: ALBUMIN 2.7 G/DL (3.2-4.8); ALKALINE PHOSPHATASE 64 IU/L (3-129); ALT (GPT) 21 IU/L (3-49); AST (GOT) 20 IU/L (2-34); CHLORIDE 104 MEQ/L (99-109); CREATININE 1.6 MG/DL (0.6-1.3); GFR ESTIMATE (CALCULATED) 45 mL/min/ (58.99-99999); GLUCOSE 96 mg/dL (70-99); POTASSIUM 3.7 MEQ/L (3.7-5.4); SODIUM 138 MEQ/L (136-147); TOTAL BILIRUBIN 0.4 MG/DL (0.0-1.0); TOTAL PROTEIN 6.3 G/DL (6.4-8.3); UREA NITROGEN (BUN) 25 mg/dL (9-23)
[2017-11-29 08:06] VITALS: BP 118/59
[2017-11-29 11:45] VITALS: BP 124/63
[2017-11-29 16:14] VITALS: BP 161/76
[2017-11-29 20:00] VITALS: BP 118/67
[2017-11-29 23:54] VITALS: BP 135/71
[2017-11-30] VITALS (7 sets, daily range): BP systolic 119–133; BP diastolic 59–69
[2017-12-01 04:12] VITALS: BP 120/64
[2017-12-01 07:13] VITALS: BP 122/70
[2017-12-01 11:08] VITALS: BP 126/67
[2017-12-01] MEDS ORDERED: FLAGYL500 MG PO (12:54)
[2017-12-01] MEDS ORDERED: CIPRO500 MG PO (12:55)
== END 2017-12-01 15:16 | DRG 190 ==
LOC: EME 18:20 → 2EAST 20:41 → EDOF 20:41 → ENRESERV 21:16 → 2EAST 23:48 → ENRESERV 23:57 → 2EAST 11-28 01:05
PROVIDERS: Emergency Medicine; Internal Medicine
DX: J44.1 Chronic obstructive pulmonary disease with (acute) exacerbation (principal); J18.9 Pneumonia, unspecified organism; J44.0 Chronic obstructive pulmonary disease with (acute) lower respiratory infection; I13.0 Hypertensive heart and chronic kidney disease with heart failure and stage 1 through stage 4 chronic kidney disease, or unspecified chronic kidney disease; Z99.81 Dependence on supplemental oxygen; N18.3 Chronic kidney disease, stage 3 (moderate); I27.20 Pulmonary hypertension, unspecified; K21.9 Gastro-esophageal reflux disease without esophagitis; D64.9 Anemia, unspecified; M19.90 Unspecified osteoarthritis, unspecified site; F32.9 Major depressive disorder, single episode, unspecified; F41.9 Anxiety disorder, unspecified; E11.22 Type 2 diabetes mellitus with diabetic chronic kidney disease; N40.0 Benign prostatic hyperplasia without lower urinary tract symptoms; E03.9 Hypothyroidism, unspecified; I50.9 Heart failure, unspecified; I71.4 Abdominal aortic aneurysm, without rupture; Z87.891 Personal history of nicotine dependence; E66.9 Obesity, unspecified; Z68.28 Body mass index [BMI] 28.0-28.9, adult; I25.10 Atherosclerotic heart disease of native coronary artery without angina pectoris; E78.5 Hyperlipidemia, unspecified; R09.02 Hypoxemia; Z79.82 Long term (current) use of aspirin
CPT/HCPCS: 71046; 80053; 81003; 82948; 83605; 83880; 84484; 85025; 85027; 87040; 93005; 94640; 94640 76; 94799; 99202; 99281; 99285; A6214; J0692; J1644; J1815; J1956; J3370; S0030

== ENCOUNTER 2018-01-07 20:05 | Inpatient (IN) | payer OTHER ==
[~2018-01-07] VITALS: Ht 175.3 cm; Wt 78.4 kg
[~2018-01-07 20:05] MED LIST changes: +FLAGYL500 MG PO
[2018-01-07 20:43] LABS: HEMATOCRIT 29.6 % (38.0-50.0); HEMOGLOBIN 9.7 G/DL (12.5-16.6); MCH 29.4 PG (29.0-34.0); MCHC 32.8 G/DL (30.0-36.0); MCV 89.7 FL (86-99); PLATELET COUNT 180 K/uL (156-360); RBC DIS.WIDTH-CV 14.6 % (11.8-14.6); WHITE BLOOD COUNT 9.3 K/uL (4.1-10.2)
[2018-01-07 20:58] LABS: CARBON DIOXIDE (BICARBONATE) 29.7 MEQ/L (20-31)
[2018-01-07 21:05] LABS: CHLORIDE 104 mEq/L (99-109); POTASSIUM 3.9 mEq/L (3.7-5.4); SODIUM 137 mEq/L (136-147)
[2018-01-07 21:06] LABS: GLUCOSE 92 mg/dL (70-99)
[2018-01-07 21:10] LABS: CREATININE 1.5 mg/dL (0.6-1.3); GFR ESTIMATE (CALCULATED) 49 mL/min/ (58.99-99999)
[2018-01-07 21:11] LABS: UREA NITROGEN (BUN) 26 mg/dL (9-23)
[2018-01-07 21:15] LABS: TROP-I INTERPRETATION NEGATIVE; TROPONIN-I 0.04 ng/mL (0.0-0.30)
[2018-01-07] MEDS ORDERED: AZITHROMYCIN250 MG1 PO ×2 (22:09→22:10)
[2018-01-07] MEDS ORDERED: BREO ELLIPTA 21 EACH IH (22:12)
[2018-01-07] MEDS ORDERED: TUMS500 MG PO (22:22)
[2018-01-07] MEDS ORDERED: CEFTRIAXONE1 G1 IM (22:29)
[2018-01-07 23:45] VITALS: BP 124/65
[2018-01-08 03:33] VITALS: BP 125/62
[2018-01-08 08:28] VITALS: BP 143/70
[2018-01-08 11:41] VITALS: BP 130/70
[2018-01-08 15:35] VITALS: BP 130/76
[2018-01-08 19:49] VITALS: BP 131/68
[2018-01-08 23:53] VITALS: BP 141/66
[2018-01-09] VITALS (13 sets, daily range): BP systolic 104–169; BP diastolic 51–85
[2018-01-09 05:04] LABS: SITE RR
[2018-01-09 05:05] LABS: COMMENTS - BLOOD GASES C+; DEVICE NEB; O2 FLOW 8 L/MIN; PCO2 55 mm Hg (35-45); PO2 52 mm Hg (80-100); TOTAL RESP RATE 22 resp/min; pH 7.22 (7.35-7.45)
[2018-01-09 05:06] LABS: BASE EXCESS -5.6 mEq/L (-3 to +3); BICARBONATE 22.5 mEq/L (22-26); CARBOXY HGB 1.1 % (0-5); METHEMOGLOBIN 0.8 % (0-1.5)
[2018-01-09 05:32] LABS: HEMATOCRIT 35.1 % (38.0-50.0); HEMOGLOBIN 11.4 G/DL (12.5-16.6); MCH 29.5 PG (29.0-34.0); MCHC 32.5 G/DL (30.0-36.0); MCV 90.9 FL (86-99); PLATELET COUNT 217 K/uL (156-360); RBC DIS.WIDTH-CV 14.6 % (11.8-14.6); RBC DIS.WIDTH-SD 48.7 % (39-53); RED BLOOD COUNT 3.86 M/uL (4.00-5.50); WHITE BLOOD COUNT 11.1 K/uL (4.1-10.2)
[2018-01-09 05:35] LABS: CHLORIDE 110 mEq/L (99-109); POTASSIUM 4.6 mEq/L (3.7-5.4)
[2018-01-09 05:41] LABS: CREATININE 1.7 mg/dL (0.6-1.3); GFR ESTIMATE (CALCULATED) 42 mL/min/ (58.99-99999)
[2018-01-09 05:42] LABS: GLUCOSE 177 mg/dL (70-99); SODIUM 144 mEq/L (136-147); UREA NITROGEN (BUN) 37 mg/dL (9-23)
[2018-01-09 05:47] LABS: TROP-I INTERPRETATION NEGATIVE; TROPONIN-I 0.04 ng/mL (0.0-0.30)
[2018-01-10] VITALS (23 sets, daily range): BP systolic 102–150; BP diastolic 56–99
[2018-01-10 09:58] LABS: BASOPHIL (%) 0 % (0-1); EOSINOPHIL (%) 0 % (0-5); HEMOGLOBIN 9.7 G/DL (12.5-16.6); IMMATURE GRANULOCYTE (%) 0.5 % (0.0-0.7); LYMPHOCYTE (%) 8.5 % (15-42); LYMPHOCYTE COUNT 0.8 K/uL (1.0-2.8); MCH 28.7 PG (29.0-34.0); MCHC 31.3 G/DL (30.0-36.0); MCV 91.7 FL (86-99); MONOCYTE (%) 5.1 % (3-12); MONOCYTE COUNT 0.5 K/uL (0-0.8); NEUTROPHIL (%) 85.9 % (45-76); NEUTROPHIL COUNT 7.9 K/uL (1.8-6.4); PLATELET COUNT 206 K/uL (156-360); RBC DIS.WIDTH-CV 14.9 % (11.8-14.6); RBC DIS.WIDTH-SD 50.2 % (39-53); RED BLOOD COUNT 3.38 M/uL (4.00-5.50); WHITE BLOOD COUNT 9.2 K/uL (4.1-10.2)
[2018-01-10 10:24] LABS: CHLORIDE 112 MEQ/L (99-109); CREATININE 1.3 MG/DL (0.6-1.3); GFR ESTIMATE (CALCULATED) 58 mL/min/ (58.99-99999); GLUCOSE 169 mg/dL (70-99); POTASSIUM 4.1 MEQ/L (3.7-5.4); SODIUM 143 MEQ/L (136-147); UREA NITROGEN (BUN) 38 mg/dL (9-23)
[2018-01-11] VITALS (22 sets, daily range): BP systolic 95–176; BP diastolic 58–93
[2018-01-12] VITALS (21 sets, daily range): BP systolic 94–145; BP diastolic 58–91
[2018-01-12 09:33] LABS: HEMATOCRIT 34.4 % (38.0-50.0); MCH 27.8 PG (29.0-34.0); PLATELET COUNT 213 K/uL (156-360); RBC DIS.WIDTH-CV 14.5 % (11.8-14.6); RBC DIS.WIDTH-SD 46.3 % (39-53); RED BLOOD COUNT 3.96 M/uL (4.00-5.50); WHITE BLOOD COUNT 8.2 K/uL (4.1-10.2)
[2018-01-12 09:34] LABS: MCV 86.9 FL (86-99)
[2018-01-12 09:53] LABS: CHLORIDE 103 MEQ/L (99-109); CREATININE 1.5 MG/DL (0.6-1.3); GFR ESTIMATE (CALCULATED) 49 mL/min/ (58.99-99999); SODIUM 143 MEQ/L (136-147); UREA NITROGEN (BUN) 43 mg/dL (9-23)
[2018-01-12 09:58] LABS: GLUCOSE 118 mg/dL (70-99); POTASSIUM 3.2 MEQ/L (3.7-5.4)
[2018-01-12 21:41] LABS: CHLORIDE 100 MEQ/L (99-109); CREATININE 1.6 MG/DL (0.6-1.3); GFR ESTIMATE (CALCULATED) 45 mL/min/ (58.99-99999); GLUCOSE 163 mg/dL (70-99); MAGNESIUM 1.8 mg/dl (1.3-2.7); PHOSPHORUS 3.3 mg/dL (2.5-4.9); POTASSIUM 3.5 MEQ/L (3.7-5.4); SODIUM 141 MEQ/L (136-147); UREA NITROGEN (BUN) 47 mg/dL (9-23)
[2018-01-13] VITALS (25 sets, daily range): BP systolic 104–162; BP diastolic 66–110
[2018-01-13 02:32] LABS: APPEARANCE BLOODY ((CLEAR)); BILIRUBIN NEGATIVE; BLOOD LARGE; COLOR RED ((YELLOW)); GLUCOSE (STRIP) NEGATIVE; KETONES NEGATIVE; LEUKOCYTES MODERATE; NITRITE NEGATIVE; PH, URINE 6.5 (5-8); PROTEIN (STRIP) 300; SPECIFIC GRAVITY 1.015 (1.000-1.030); UROBILINOGEN 0.2 MG/DL (0.2-1.0)
[2018-01-13 02:33] LABS: RED BLOOD CELLS TNTC /HPF (0-5); UCUL ADDED? YES
[2018-01-13 04:30] LABS: HEMATOCRIT 33.7 % (38.0-50.0); MCH 28.4 PG (29.0-34.0); MCHC 32.6 G/DL (30.0-36.0); MCV 87.1 FL (86-99); PLATELET COUNT 181 K/uL (156-360); RBC DIS.WIDTH-CV 14.5 % (11.8-14.6); RBC DIS.WIDTH-SD 46.2 % (39-53); RED BLOOD COUNT 3.87 M/uL (4.00-5.50); WHITE BLOOD COUNT 9.8 K/uL (4.1-10.2)
[2018-01-13 04:46] LABS: ALBUMIN 3.2 g/dL (3.2-4.8)
[2018-01-13 04:47] LABS: CHLORIDE 102 mEq/L (99-109); POTASSIUM 3.9 mEq/L (3.7-5.4); SODIUM 139 mEq/L (136-147)
[2018-01-13 04:49] LABS: GLUCOSE 130 mg/dL (70-99)
[2018-01-13 04:51] LABS: TOTAL BILIRUBIN 0.3 mg/dL (0.0-1.0)
[2018-01-13 04:52] LABS: ALKALINE PHOSPHATASE 66 IU/L (3-129)
[2018-01-13 04:53] LABS: CREATININE 1.6 mg/dL (0.6-1.3); GFR ESTIMATE (CALCULATED) 45 mL/min/ (58.99-99999)
[2018-01-13 04:54] LABS: AST (GOT) 15 IU/L (2-34); UREA NITROGEN (BUN) 48 mg/dL (9-23)
[2018-01-13 04:56] LABS: ALT (GPT) 23 IU/L (3-49)
[2018-01-13 07:08] LABS: ABS NEUTROPHIL COUNT 6.4; ANISOCYTOSIS 1+; ATYPICAL LYMPHOCYTE 2.6 %; BAND NEUTROPHILS 25.2 % (0-8.0); EOSINOPHIL ABS CT 0.9; EOSINOPHILS 9.6 % (0-5.0); HYPOCHROMASIA 1+; LYMPHOCYTES 16.5 % (15.0-45.0); METAMYELOCYTES 2.6 %; MONOCYTES 2.6 % (0-9.0); MYELOCYTES 0.9 %; PLAT.SUFFICIENCY ADEQUATE
[2018-01-13 11:15] LABS: BASE EXCESS 3.7 mEq/L (-3 to +3); BICARBONATE 28.5 mEq/L (22-26); CARBOXY HGB 0.8 % (0-5); COMMENTS - BLOOD GASES A+C+; DEVICE HFLNC; METHEMOGLOBIN 0.9 % (0-1.5); O2 FLOW 10 L/MIN; O2 SATURATION (CALCULATED) 96.9 % (95-99); PCO2 43 mm Hg (35-45); PO2 93 mm Hg (80-100); SITE RR; TOTAL RESP RATE 17 resp/min; pH 7.43 (7.35-7.45)
[2018-01-14] VITALS (7 sets, daily range): BP systolic 117–162; BP diastolic 57–100
[2018-01-15 03:56] VITALS: BP 133/63
[2018-01-15 08:43] VITALS: BP 128/62
[2018-01-15 12:07] VITALS: BP 152/74
[2018-01-15 15:31] LABS: HEMATOCRIT 30.2 % (38.0-50.0); HEMOGLOBIN 9.6 G/DL (12.5-16.6); MCH 28.5 PG (29.0-34.0); MCHC 31.8 G/DL (30.0-36.0); MCV 89.6 FL (86-99); PLATELET COUNT 179 K/uL (156-360); RBC DIS.WIDTH-CV 14.5 % (11.8-14.6); RBC DIS.WIDTH-SD 46.7 % (39-53); RED BLOOD COUNT 3.37 M/uL (4.00-5.50); WHITE BLOOD COUNT 8.1 K/uL (4.1-10.2)
[2018-01-15 15:55] LABS: CHLORIDE 105 MEQ/L (99-109); CREATININE 1.8 MG/DL (0.6-1.3); GFR ESTIMATE (CALCULATED) 40 mL/min/ (58.99-99999); GLUCOSE 121 mg/dL (70-99); POTASSIUM 3.9 MEQ/L (3.7-5.4); SODIUM 140 MEQ/L (136-147); UREA NITROGEN (BUN) 39 mg/dL (9-23)
[2018-01-15 16:07] VITALS: BP 148/78
[2018-01-15 19:30] VITALS: BP 144/68
[2018-01-15 23:24] VITALS: BP 148/60
[2018-01-16 04:26] VITALS: BP 152/75
[2018-01-16 05:28] LABS: HEMATOCRIT 30.1 % (38.0-50.0); HEMOGLOBIN 9.2 G/DL (12.5-16.6); MCH 27.5 PG (29.0-34.0); MCHC 30.6 G/DL (30.0-36.0); MCV 90.1 FL (86-99); PLATELET COUNT 170 K/uL (156-360); RBC DIS.WIDTH-CV 14.5 % (11.8-14.6); RBC DIS.WIDTH-SD 48.4 % (39-53); RED BLOOD COUNT 3.34 M/uL (4.00-5.50); WHITE BLOOD COUNT 7.7 K/uL (4.1-10.2)
[2018-01-16 06:15] LABS: CHLORIDE 107 MEQ/L (99-109); CREATININE 1.6 MG/DL (0.6-1.3); GFR ESTIMATE (CALCULATED) 45 mL/min/ (58.99-99999); GLUCOSE 109 mg/dL (70-99); POTASSIUM 3.8 MEQ/L (3.7-5.4); SODIUM 140 MEQ/L (136-147); UREA NITROGEN (BUN) 39 mg/dL (9-23)
[2018-01-16 07:12] VITALS: BP 148/68
[2018-01-16 11:07] VITALS: BP 132/66
[2018-01-16] MEDS ORDERED: CEFEPIME HCL1 GM IV (15:57)
[2018-01-16] MEDS ORDERED: DOCUSATE SODIU100 MG PO (15:57)
[2018-01-16 16:22] VITALS: BP 155/72
== END 2018-01-16 20:45 | DRG 196 ==
LOC: EME → EDBD 20:05 → 4WEST 22:00 → 2EAST 22:00 → EDOF 22:00 → ENRESERV 22:16 → 2EAST 23:20 → ENRESERV 01-09 05:20 → 4WEST 01-09 05:26 → ENRESERV 01-13 19:16 → 3EAST 01-13 20:39
PROVIDERS: Emergency Medicine; Family Medicine; Internal Medicine; Internal Medicine Critical Care Medicine; Obstetrics & Gynecology
PROC: 5A09357 Assistance with Respiratory Ventilation, Less than 24 Consecutive Hours, Continuous Positive Airway Pressure (ICD-10-PCS; principal; 2018-01-09)
DX: J84.9 Interstitial pulmonary disease, unspecified (principal); J44.0 Chronic obstructive pulmonary disease with (acute) lower respiratory infection; J96.21 Acute and chronic respiratory failure with hypoxia; I13.0 Hypertensive heart and chronic kidney disease with heart failure and stage 1 through stage 4 chronic kidney disease, or unspecified chronic kidney disease; J44.1 Chronic obstructive pulmonary disease with (acute) exacerbation; I25.10 Atherosclerotic heart disease of native coronary artery without angina pectoris; N18.9 Chronic kidney disease, unspecified; I50.9 Heart failure, unspecified; Z87.891 Personal history of nicotine dependence; E78.5 Hyperlipidemia, unspecified; E03.9 Hypothyroidism, unspecified; N40.0 Benign prostatic hyperplasia without lower urinary tract symptoms; K21.9 Gastro-esophageal reflux disease without esophagitis; E11.22 Type 2 diabetes mellitus with diabetic chronic kidney disease; F32.9 Major depressive disorder, single episode, unspecified; F41.9 Anxiety disorder, unspecified; G89.29 Other chronic pain; I27.20 Pulmonary hypertension, unspecified; Z87.01 Personal history of pneumonia (recurrent); Z99.81 Dependence on supplemental oxygen; D64.9 Anemia, unspecified; Z90.49 Acquired absence of other specified parts of digestive tract; M19.90 Unspecified osteoarthritis, unspecified site
CPT/HCPCS: 36600; 71045; 74230; 80048; 80048 91; 80053; 80202; 81003; 82803; 82948; 83605; 83735; 83880; 84100; 84484; 85025; 85027; 87040; 87077; 87086; 87106; 87186; 87641; 92610 GN; 92611 GN; 93005; 93306; 94010; 94640; 94640 76; 94660; 94667; 94668; 94760; 94799; 99202; 99281; 99285; J0692; J1100; J1644; J1815; J1940; J1956; J2930; J3370

== ENCOUNTER 2018-01-25 08:49 | Inpatient (IN) | payer OTHER ==
[~2018-01-25] VITALS: Ht 177.8 cm; Wt 81.0 kg
[~2018-01-25 08:49] MED LIST changes: +BREO ELLIPTA 21 EACH IH; +CEFEPIME HCL1 GM IV; +CEFTRIAXONE1 G1 IM; +DOCUSATE SODIU100 MG PO; +TUMS500 MG PO
[2018-01-25 09:16] LABS: BASOPHIL (%) 1.4 % (0-1); BASOPHIL COUNT 0.1 K/uL (0-0.1); EOSINOPHIL (%) 5.5 % (0-5); EOSINOPHIL COUNT 0.4 K/uL (0-0.3); HEMATOCRIT 33.3 % (38.0-50.0); HEMOGLOBIN 10.5 G/DL (12.5-16.6); IMMATURE GRANULOCYTE (%) 0.2 % (0.0-0.7); LYMPHOCYTE (%) 17.9 % (15-42); LYMPHOCYTE COUNT 1.4 K/uL (1.0-2.8); MCH 28.5 PG (29.0-34.0); MCHC 31.5 G/DL (30.0-36.0); MCV 90.5 FL (86-99); MONOCYTE (%) 6.2 % (3-12); MONOCYTE COUNT 0.5 K/uL (0-0.8); NEUTROPHIL (%) 68.8 % (45-76); NEUTROPHIL COUNT 5.5 K/uL (1.8-6.4); PLATELET COUNT 150 K/uL (156-360); RBC DIS.WIDTH-CV 14.2 % (11.8-14.6); RED BLOOD COUNT 3.68 M/uL (4.00-5.50)
[2018-01-25 09:27] LABS: ALBUMIN 3.5 g/dL (3.2-4.8); CHLORIDE 108 mEq/L (99-109); POTASSIUM 3.6 mEq/L (3.7-5.4); SODIUM 143 mEq/L (136-147)
[2018-01-25 09:29] LABS: GLUCOSE 175 mg/dL (70-99); TOTAL PROTEIN 7.8 g/dL (6.4-8.3)
[2018-01-25 09:31] LABS: TOTAL BILIRUBIN 0.4 mg/dL (0.0-1.0)
[2018-01-25 09:33] LABS: ALKALINE PHOSPHATASE 82 IU/L (3-129); CREATININE 1.5 mg/dL (0.6-1.3); GFR ESTIMATE (CALCULATED) 49 mL/min/ (58.99-99999)
[2018-01-25 09:34] LABS: UREA NITROGEN (BUN) 24 mg/dL (9-23)
[2018-01-25 09:35] LABS: AST (GOT) 14 IU/L (2-34)
[2018-01-25 09:36] LABS: ALT (GPT) 16 IU/L (3-49)
[2018-01-25 09:37] LABS: TROP-I INTERPRETATION NEGATIVE; TROPONIN-I 0.06 ng/mL (0.0-0.30)
[2018-01-25] MEDS ORDERED: DUONEB 2.5-0.5 M3 ML AEROSOL ×2 (11:20→11:21)
[2018-01-25 12:29] VITALS: BP 156/72
[2018-01-25 16:03] VITALS: BP 160/80
[2018-01-25 19:46] VITALS: BP 130/71
[2018-01-25 23:32] VITALS: BP 111/59
[2018-01-26 03:45] VITALS: BP 103/55
[2018-01-26 06:50] LABS: HEMATOCRIT 30.7 % (38.0-50.0); HEMOGLOBIN 9.5 G/DL (12.5-16.6); MCH 27.9 PG (29.0-34.0); MCHC 30.9 G/DL (30.0-36.0); PLATELET COUNT 165 K/uL (156-360); RBC DIS.WIDTH-CV 14.2 % (11.8-14.6); RBC DIS.WIDTH-SD 46.6 % (39-53); RED BLOOD COUNT 3.41 M/uL (4.00-5.50); WHITE BLOOD COUNT 8.8 K/uL (4.1-10.2)
[2018-01-26 07:11] LABS: CHLORIDE 109 MEQ/L (99-109); CREATININE 1.4 MG/DL (0.6-1.3); GFR ESTIMATE (CALCULATED) 53 mL/min/ (58.99-99999); GLUCOSE 157 mg/dL (70-99); POTASSIUM 3.8 MEQ/L (3.7-5.4); SODIUM 142 MEQ/L (136-147); UREA NITROGEN (BUN) 28 mg/dL (9-23)
[2018-01-26 08:06] VITALS: BP 117/56
[2018-01-26 12:08] VITALS: BP 148/66
[2018-01-26 15:59] VITALS: BP 126/58
[2018-01-26 19:01] VITALS: BP 131/69
[2018-01-26 23:29] VITALS: BP 115/58
[2018-01-27 05:03] VITALS: BP 130/68
[2018-01-27 08:13] VITALS: BP 157/77
[2018-01-27 12:29] VITALS: BP 158/78
[2018-01-27 14:52] LABS: BICARBONATE 23.2 mEq/L (22-26); O2 SATURATION (CALCULATED) 92.6 % (95-99); PCO2 42 mm Hg (35-45); PO2 62 mm Hg (80-100); pH 7.35 (7.35-7.45)
[2018-01-27 14:53] LABS: BASE EXCESS -2.3 mEq/L (-3 to +3)
[2018-01-27 14:54] LABS: COMMENTS - BLOOD GASES C+; DEVICE NC; O2 FLOW 6 L/MIN; SITE LB; TOTAL RESP RATE 24 resp/min
[2018-01-27 15:41] VITALS: BP 150/70
[2018-01-27 20:16] VITALS: BP 147/79
[2018-01-27 23:45] VITALS: BP 147/85
[2018-01-28] VITALS (20 sets, daily range): BP systolic 116–152; BP diastolic 72–98
[2018-01-28 04:47] LABS: SITE LR
[2018-01-28 04:48] LABS: COMMENTS - BLOOD GASES A+C+; DEVICE NRM; O2 FLOW 15 L/MIN
[2018-01-28 04:49] LABS: BASE EXCESS -4.6 mEq/L (-3 to +3); CARBOXY HGB 0.9 % (0-5); METHEMOGLOBIN 0.8 % (0-1.5); PCO2 70 mm Hg (35-45); PO2 83 mm Hg (80-100); TOTAL RESP RATE 38 resp/min; pH 7.16 (7.35-7.45)
[2018-01-28 05:57] LABS: COMMENTS - BLOOD GASES A+C+; DEVICE VENT; FI02 75 %; MODE SPONT; PEEP 5 CM/H20; PRES. SUPPORT 8 CM/H2O; SITE RR; TOTAL RESP RATE 20 resp/min; pH 7.26 (7.35-7.45)
[2018-01-28 05:58] LABS: BASE EXCESS -3.3 mEq/L (-3 to +3); BICARBONATE 24.2 mEq/L (22-26); CARBOXY HGB 1.2 % (0-5); METHEMOGLOBIN 0.8 % (0-1.5); PCO2 54 mm Hg (35-45); PO2 85 mm Hg (80-100)
[2018-01-28 06:24] LABS: ALBUMIN 3.6 G/DL (3.2-4.8); ALKALINE PHOSPHATASE 70 IU/L (3-129); ALT (GPT) 14 IU/L (3-49); AST (GOT) 12 IU/L (2-34); CHLORIDE 106 MEQ/L (99-109); CREATININE 1.5 MG/DL (0.6-1.3); GFR ESTIMATE (CALCULATED) 49 mL/min/ (58.99-99999); GLUCOSE 205 mg/dL (70-99); MAGNESIUM 2.1 mg/dl (1.3-2.7); POTASSIUM 4.5 MEQ/L (3.7-5.4); SODIUM 138 MEQ/L (136-147); TOTAL BILIRUBIN 0.3 MG/DL (0.0-1.0); TOTAL PROTEIN 7.7 G/DL (6.4-8.3); UREA NITROGEN (BUN) 36 mg/dL (9-23)
[2018-01-28 06:26] LABS: PHOSPHORUS 4.5 mg/dL (2.5-4.9)
[2018-01-28 07:23] LABS: HEMATOCRIT 34.8 % (38.0-50.0); HEMOGLOBIN 10.7 G/DL (12.5-16.6); MCH 28.1 PG (29.0-34.0); MCHC 30.7 G/DL (30.0-36.0); MCV 91.3 FL (86-99); PLATELET COUNT 185 K/uL (156-360); RBC DIS.WIDTH-CV 14.6 % (11.8-14.6); RBC DIS.WIDTH-SD 49.1 % (39-53); RED BLOOD COUNT 3.81 M/uL (4.00-5.50); WHITE BLOOD COUNT 10.5 K/uL (4.1-10.2)
[2018-01-28 12:34] LABS: HEMOGLOBIN A1c (GLYCOHEMOGLOB) 6.3 % (Below 5.7)
[2018-01-29] VITALS (19 sets, daily range): BP systolic 110–167; BP diastolic 63–93
[2018-01-29 05:28] LABS: BASOPHIL (%) 0 % (0-1); EOSINOPHIL (%) 0 % (0-5); HEMATOCRIT 29.8 % (38.0-50.0); HEMOGLOBIN 9.4 G/DL (12.5-16.6); IMMATURE GRANULOCYTE (%) 0.7 % (0.0-0.7); LYMPHOCYTE (%) 6.8 % (15-42); LYMPHOCYTE COUNT 0.5 K/uL (1.0-2.8); MCHC 31.5 G/DL (30.0-36.0); MCV 88.7 FL (86-99); MONOCYTE (%) 4.2 % (3-12); MONOCYTE COUNT 0.3 K/uL (0-0.8); NEUTROPHIL (%) 88.3 % (45-76); NEUTROPHIL COUNT 6.4 K/uL (1.8-6.4); PLATELET COUNT 171 K/uL (156-360); RBC DIS.WIDTH-CV 14.5 % (11.8-14.6); RBC DIS.WIDTH-SD 46.7 % (39-53); RED BLOOD COUNT 3.36 M/uL (4.00-5.50); WHITE BLOOD COUNT 7.2 K/uL (4.1-10.2)
[2018-01-29 05:52] LABS: CHLORIDE 110 MEQ/L (99-109); CREATININE 1.3 MG/DL (0.6-1.3); GFR ESTIMATE (CALCULATED) 58 mL/min/ (58.99-99999); GLUCOSE 143 mg/dL (70-99); POTASSIUM 3.8 MEQ/L (3.7-5.4); UREA NITROGEN (BUN) 40 mg/dL (9-23)
[2018-01-29 05:54] LABS: SODIUM 146 MEQ/L (136-147)
[2018-01-29 13:56] LABS: INTER. NORMALIZED RATIO 1.2
[2018-01-29 13:59] LABS: PTT 25.2 SEC (25-37)
[2018-01-30] VITALS (7 sets, daily range): BP systolic 119–186; BP diastolic 57–90
[2018-01-30 06:51] LABS: HEMATOCRIT 28.9 % (38.0-50.0); HEMOGLOBIN 9.3 G/DL (12.5-16.6); MCH 28.4 PG (29.0-34.0); MCHC 32.2 G/DL (30.0-36.0); MCV 88.4 FL (86-99); PLATELET COUNT 171 K/uL (156-360); RBC DIS.WIDTH-CV 14.5 % (11.8-14.6); RBC DIS.WIDTH-SD 46.7 % (39-53); RED BLOOD COUNT 3.27 M/uL (4.00-5.50); WHITE BLOOD COUNT 8.2 K/uL (4.1-10.2)
[2018-01-30 07:15] LABS: CHLORIDE 107 MEQ/L (99-109); CREATININE 1.4 MG/DL (0.6-1.3); GFR ESTIMATE (CALCULATED) 53 mL/min/ (58.99-99999); GLUCOSE 155 mg/dL (70-99); POTASSIUM 3.6 MEQ/L (3.7-5.4); SODIUM 141 MEQ/L (136-147); UREA NITROGEN (BUN) 50 mg/dL (9-23)
[2018-01-31 01:54] LABS: HEMATOCRIT 28.6 % (38.0-50.0); HEMOGLOBIN 9.4 G/DL (12.5-16.6); MCH 28.6 PG (29.0-34.0); MCHC 32.9 G/DL (30.0-36.0); MCV 86.9 FL (86-99); PLATELET COUNT 183 K/uL (156-360); RBC DIS.WIDTH-CV 14.3 % (11.8-14.6); RBC DIS.WIDTH-SD 46.1 % (39-53); RED BLOOD COUNT 3.29 M/uL (4.00-5.50); WHITE BLOOD COUNT 10.3 K/uL (4.1-10.2)
[2018-01-31 02:42] LABS: CHLORIDE 111 mEq/L (99-109); POTASSIUM 3.9 mEq/L (3.7-5.4); SODIUM 141 mEq/L (136-147)
[2018-01-31 02:44] LABS: GLUCOSE 192 mg/dL (70-99)
[2018-01-31 02:48] LABS: CREATININE 1.5 mg/dL (0.6-1.3); GFR ESTIMATE (CALCULATED) 49 mL/min/ (58.99-99999); UREA NITROGEN (BUN) 57 mg/dL (9-23)
[2018-01-31 03:30] VITALS: BP 128/74
[2018-01-31 07:41] VITALS: BP 169/96
[2018-01-31 11:08] LABS: CARBOXY HGB 1.6 % (0-5); METHEMOGLOBIN 0.7 % (0-1.5); O2 SATURATION (CALCULATED) 93.2 % (95-99); PCO2 46 mm Hg (35-45); PO2 45 mm Hg (80-100); pH 7.34 (7.35-7.45)
[2018-01-31 11:09] LABS: BASE EXCESS -1.2 mEq/L (-3 to +3); BICARBONATE 24.8 mEq/L (22-26); COMMENTS - BLOOD GASES A+C+; DEVICE NRBM; O2 FLOW 15 L/MIN; SITE RR; TOTAL RESP RATE 30 resp/min
[2018-01-31 11:30] LABS: BASOPHIL (%) 0.1 % (0-1); EOSINOPHIL (%) 0.1 % (0-5); HEMATOCRIT 30.9 % (38.0-50.0); HEMOGLOBIN 9.9 G/DL (12.5-16.6); IMMATURE GRANULOCYTE (%) 0.7 % (0.0-0.7); LYMPHOCYTE (%) 7.9 % (15-42); LYMPHOCYTE COUNT 0.9 K/uL (1.0-2.8); MCH 28.4 PG (29.0-34.0); MCV 88.8 FL (86-99); MONOCYTE (%) 6.6 % (3-12); MONOCYTE COUNT 0.7 K/uL (0-0.8); NEUTROPHIL (%) 84.6 % (45-76); NEUTROPHIL COUNT 9.2 K/uL (1.8-6.4); PLATELET COUNT 173 K/uL (156-360); RBC DIS.WIDTH-CV 14.6 % (11.8-14.6); RBC DIS.WIDTH-SD 47.1 % (39-53); RED BLOOD COUNT 3.48 M/uL (4.00-5.50); WHITE BLOOD COUNT 10.8 K/uL (4.1-10.2)
[2018-01-31 11:50] LABS: TROP-I INTERPRETATION NEGATIVE; TROPONIN-I 0.06 ng/mL (0.0-0.30)
[2018-01-31 11:53] VITALS: BP 135/76
[2018-01-31 12:21] LABS: CHLORIDE 109 MEQ/L (99-109); CREATININE 1.3 MG/DL (0.6-1.3); GFR ESTIMATE (CALCULATED) 58 mL/min/ (58.99-99999); GLUCOSE 163 mg/dL (70-99); SODIUM 142 MEQ/L (136-147); UREA NITROGEN (BUN) 47 mg/dL (9-23)
[2018-01-31 15:54] VITALS: BP 136/66
[2018-01-31 20:09] VITALS: BP 116/67
[2018-02-01 04:38] VITALS: BP 139/79
[2018-02-01 07:48] VITALS: BP 174/84
[2018-02-01 11:44] VITALS: BP 128/62
[2018-02-01 15:45] VITALS: BP 120/57
[2018-02-01 19:15] VITALS: BP 113/59
[2018-02-01 23:27] VITALS: BP 124/58
[2018-02-02 03:22] VITALS: BP 147/72
[2018-02-02 06:22] LABS: BASOPHIL (%) 0.2 % (0-1); EOSINOPHIL (%) 1.2 % (0-5); EOSINOPHIL COUNT 0.1 K/uL (0-0.3); HEMATOCRIT 29.2 % (38.0-50.0); HEMOGLOBIN 9.3 G/DL (12.5-16.6); IMMATURE GRANULOCYTE (%) 2.5 % (0.0-0.7); LYMPHOCYTE (%) 18.9 % (15-42); LYMPHOCYTE COUNT 1.7 K/uL (1.0-2.8); MCH 28.4 PG (29.0-34.0); MCHC 31.8 G/DL (30.0-36.0); MCV 89.3 FL (86-99); MONOCYTE (%) 9.8 % (3-12); MONOCYTE COUNT 0.9 K/uL (0-0.8); NEUTROPHIL (%) 67.4 % (45-76); PLATELET COUNT 176 K/uL (156-360); RBC DIS.WIDTH-CV 14.7 % (11.8-14.6); RBC DIS.WIDTH-SD 48.2 % (39-53); RED BLOOD COUNT 3.27 M/uL (4.00-5.50); WHITE BLOOD COUNT 8.9 K/uL (4.1-10.2)
[2018-02-02 07:01] LABS: CHLORIDE 109 MEQ/L (99-109); CREATININE 1.6 MG/DL (0.6-1.3); GFR ESTIMATE (CALCULATED) 45 mL/min/ (58.99-99999); POTASSIUM 4.1 MEQ/L (3.7-5.4); SODIUM 143 MEQ/L (136-147); UREA NITROGEN (BUN) 51 mg/dL (9-23)
[2018-02-02 07:03] LABS: GLUCOSE 106 mg/dL (70-99)
[2018-02-02 07:10] VITALS: BP 176/72
[2018-02-02 11:25] VITALS: BP 141/61
[2018-02-02 16:25] VITALS: BP 137/63
[2018-02-02 19:34] VITALS: BP 102/52
[2018-02-02 23:09] VITALS: BP 109/61
[2018-02-03 04:15] VITALS: BP 145/75
[2018-02-03 07:16] VITALS: BP 168/77
[2018-02-03 07:33] LABS: HEMATOCRIT 29.2 % (38.0-50.0); HEMOGLOBIN 9.3 G/DL (12.5-16.6); MCH 28.3 PG (29.0-34.0); MCHC 31.8 G/DL (30.0-36.0); MCV 88.8 FL (86-99); PLATELET COUNT 180 K/uL (156-360); RBC DIS.WIDTH-CV 14.6 % (11.8-14.6); RBC DIS.WIDTH-SD 46.6 % (39-53); RED BLOOD COUNT 3.29 M/uL (4.00-5.50)
[2018-02-03 07:55] LABS: CHLORIDE 110 MEQ/L (99-109); CREATININE 1.5 MG/DL (0.6-1.3); GFR ESTIMATE (CALCULATED) 49 mL/min/ (58.99-99999); GLUCOSE 117 mg/dL (70-99); POTASSIUM 4.2 MEQ/L (3.7-5.4); SODIUM 145 MEQ/L (136-147); UREA NITROGEN (BUN) 52 mg/dL (9-23)
[2018-02-03 08:02] LABS: ABS NEUTROPHIL COUNT 6.9; BAND NEUTROPHILS 19.3 % (0-8.0); EOSINOPHIL ABS CT 0.1; EOSINOPHILS 0.9 % (0-5.0); LYMPHOCYTES 8.8 % (15.0-45.0); METAMYELOCYTES 3.5 %; MONOCYTES 7.9 % (0-9.0); MYELOCYTES 2.6 %; OVALOCYTES 1+; PLAT.SUFFICIENCY ADEQUATE; POIKILOCYTOSIS 1+
[2018-02-03 11:45] VITALS: BP 128/61
[2018-02-03 15:00] VITALS: BP 130/60
[2018-02-03 18:50] LABS: INTER. NORMALIZED RATIO 1.2
[2018-02-03 18:55] VITALS: BP 112/57
[2018-02-04 00:29] VITALS: BP 113/59
[2018-02-04 03:47] VITALS: BP 134/64
[2018-02-04 06:48] LABS: BASOPHIL (%) 0.3 % (0-1); EOSINOPHIL COUNT 0.1 K/uL (0-0.3); HEMATOCRIT 29.6 % (38.0-50.0); HEMOGLOBIN 9.3 G/DL (12.5-16.6); IMMATURE GRANULOCYTE (%) 4.7 % (0.0-0.7); LYMPHOCYTE (%) 17.9 % (15-42); LYMPHOCYTE COUNT 1.6 K/uL (1.0-2.8); MCH 28.4 PG (29.0-34.0); MCHC 31.4 G/DL (30.0-36.0); MCV 90.2 FL (86-99); MONOCYTE (%) 11.1 % (3-12); NEUTROPHIL COUNT 5.8 K/uL (1.8-6.4); PLATELET COUNT 179 K/uL (156-360); RBC DIS.WIDTH-CV 15.2 % (11.8-14.6); RBC DIS.WIDTH-SD 50.1 % (39-53); RED BLOOD COUNT 3.28 M/uL (4.00-5.50); WHITE BLOOD COUNT 8.9 K/uL (4.1-10.2)
[2018-02-04 07:09] LABS: INTER. NORMALIZED RATIO 1.1
[2018-02-04 07:12] LABS: PTT 47.6 SEC (25-37)
[2018-02-04 07:14] VITALS: BP 167/83
[2018-02-04 07:14] LABS: CHLORIDE 108 MEQ/L (99-109); GFR ESTIMATE (CALCULATED) 35 mL/min/ (58.99-99999); GLUCOSE 116 mg/dL (70-99); POTASSIUM 3.9 MEQ/L (3.7-5.4); SODIUM 146 MEQ/L (136-147); UREA NITROGEN (BUN) 58 mg/dL (9-23)
[2018-02-04 11:21] VITALS: BP 132/62
[2018-02-04 11:48] LABS: COMMENTS - BLOOD GASES A+C+; O2 FLOW 3 L/MIN; SITE LR
[2018-02-04 11:49] LABS: BICARBONATE 26.6 mEq/L (22-26); CARBOXY HGB 1.2 % (0-5); DEVICE NC; METHEMOGLOBIN 0.6 % (0-1.5); PCO2 46 mm Hg (35-45); PO2 90 mm Hg (80-100); TOTAL RESP RATE 18 resp/min; pH 7.37 (7.35-7.45)
[2018-02-04 11:50] LABS: BASE EXCESS 0.9 mEq/L (-3 to +3)
[2018-02-04 13:00] LABS: APPEARANCE CLOUDY ((CLEAR)); BILIRUBIN NEGATIVE; BLOOD MODERATE; COLOR YELLOW ((YELLOW)); GLUCOSE (STRIP) NEGATIVE; KETONES NEGATIVE; LEUKOCYTES LARGE; NITRITE NEGATIVE; PROTEIN (STRIP) NEGATIVE; UROBILINOGEN 0.2 MG/DL (0.2-1.0)
[2018-02-04 13:39] LABS: RED BLOOD CELLS NONE SEEN /HPF (0-5); WHITE BLOOD CELLS TNTC /HPF (0-5)
[2018-02-04 13:40] LABS: BACTERIA NONE SEEN /HPF; EPITHELIAL CELLS NONE SEEN /HPF; MUCUS NONE SEEN /LPF
[2018-02-04 16:02] VITALS: BP 140/65
[2018-02-04 17:18] LABS: UR CREATININE CONCENTRATION 30.5 MG/DL
[2018-02-04 19:00] VITALS: BP 105/61
[2018-02-05 00:10] VITALS: BP 127/60
[2018-02-05 05:31] LABS: HEMATOCRIT 29.7 % (38.0-50.0); HEMOGLOBIN 9.4 G/DL (12.5-16.6); MCH 28.6 PG (29.0-34.0); MCHC 31.6 G/DL (30.0-36.0); MCV 90.3 FL (86-99); PLATELET COUNT 194 K/uL (156-360); RBC DIS.WIDTH-CV 15.5 % (11.8-14.6); RBC DIS.WIDTH-SD 50.5 % (39-53); RED BLOOD COUNT 3.29 M/uL (4.00-5.50); WHITE BLOOD COUNT 12.3 K/uL (4.1-10.2)
[2018-02-05 05:52] VITALS: BP 140/65
[2018-02-05 05:54] LABS: INTER. NORMALIZED RATIO 1.2
[2018-02-05 05:56] LABS: CHLORIDE 103 MEQ/L (99-109); CREATININE 2.3 MG/DL (0.6-1.3); GFR ESTIMATE (CALCULATED) 30 mL/min/ (58.99-99999); GLUCOSE 124 mg/dL (70-99); POTASSIUM 4.5 MEQ/L (3.7-5.4); SODIUM 144 MEQ/L (136-147); UREA NITROGEN (BUN) 69 mg/dL (9-23)
[2018-02-05 06:42] LABS: ABS NEUTROPHIL COUNT 9.5; ANISOCYTOSIS 2+; BAND NEUTROPHILS 20.9 % (0-8.0); EOSINOPHIL ABS CT 0; MICROCYTOSIS 1+; MONOCYTES 1.7 % (0-9.0); MYELOCYTES 0.9 %; NUCLEATED RBC'S 0.9; OVALOCYTES 2+; PLAT.SUFFICIENCY ADEQUATE; POIKILOCYTOSIS 1+; POLYCHROMASIA 1+; SEG.NEUTROPHILS 56.5 % (46.0-76.0); TEAR DROP CELLS 1+; TOXIC GRANULATION 2+
[2018-02-05 08:00] VITALS: BP 133/73
[2018-02-05 11:23] VITALS: BP 104/62
[2018-02-05 16:00] VITALS: BP 100/60
[2018-02-05 19:21] VITALS: BP 102/61
[2018-02-06 00:15] VITALS: BP 124/61
[2018-02-06 04:49] VITALS: BP 103/58
[2018-02-06 06:43] LABS: INTER. NORMALIZED RATIO 1.5
[2018-02-06 06:45] LABS: PTT 88.5 SEC (25-37)
[2018-02-06 07:18] VITALS: BP 115/56
[2018-02-06 12:03] VITALS: BP 107/57
[2018-02-06 12:59] LABS: BASOPHIL (%) 0.4 % (0-1); BASOPHIL COUNT 0.1 K/uL (0-0.1); EOSINOPHIL (%) 0.6 % (0-5); EOSINOPHIL COUNT 0.1 K/uL (0-0.3); HEMATOCRIT 30.2 % (38.0-50.0); HEMOGLOBIN 9.5 G/DL (12.5-16.6); IMMATURE GRANULOCYTE (%) 4.5 % (0.0-0.7); LYMPHOCYTE (%) 8.2 % (15-42); MCH 28.7 PG (29.0-34.0); MCHC 31.5 G/DL (30.0-36.0); MCV 91.2 FL (86-99); MONOCYTE (%) 6.8 % (3-12); MONOCYTE COUNT 0.8 K/uL (0-0.8); NEUTROPHIL (%) 79.5 % (45-76); NEUTROPHIL COUNT 9.4 K/uL (1.8-6.4); PLATELET COUNT 176 K/uL (156-360); RBC DIS.WIDTH-SD 53.2 % (39-53); RED BLOOD COUNT 3.31 M/uL (4.00-5.50); WHITE BLOOD COUNT 11.9 K/uL (4.1-10.2)
[2018-02-06 14:34] LABS: CHLORIDE 105 MEQ/L (99-109); CREATININE 1.9 MG/DL (0.6-1.3); GFR ESTIMATE (CALCULATED) 37 mL/min/ (58.99-99999); POTASSIUM 4.4 MEQ/L (3.7-5.4); SODIUM 142 MEQ/L (136-147); UREA NITROGEN (BUN) 69 mg/dL (9-23)
[2018-02-06 14:38] LABS: GLUCOSE 187 mg/dL (70-99)
[2018-02-06 15:20] VITALS: BP 126/62
[2018-02-06 21:00] VITALS: BP 122/58
[2018-02-07] VITALS (7 sets, daily range): BP systolic 99–134; BP diastolic 51–64
[2018-02-07 06:05] LABS: HEMATOCRIT 27.6 % (38.0-50.0); HEMOGLOBIN 8.7 G/DL (12.5-16.6); MCH 28.3 PG (29.0-34.0); MCHC 31.5 G/DL (30.0-36.0); MCV 89.9 FL (86-99); PLATELET COUNT 188 K/uL (156-360); RBC DIS.WIDTH-CV 15.9 % (11.8-14.6); RBC DIS.WIDTH-SD 52.8 % (39-53); RED BLOOD COUNT 3.07 M/uL (4.00-5.50); WHITE BLOOD COUNT 12.7 K/uL (4.1-10.2)
[2018-02-07 06:34] LABS: PTT 89.5 SEC (25-37)
[2018-02-07 06:53] LABS: ABS NEUTROPHIL COUNT 9.2; ANISOCYTOSIS 1+; BAND NEUTROPHILS 14.5 % (0-8.0); BURR CELLS 1+; EOSINOPHIL ABS CT 0.1; EOSINOPHILS 0.9 % (0-5.0); LYMPHOCYTES 15.5 % (15.0-45.0); METAMYELOCYTES 1.8 %; MICROCYTOSIS 1+; MONOCYTES 6.4 % (0-9.0); MYELOCYTES 2.7 %; OVALOCYTES 1+; PLAT.SUFFICIENCY ADEQUATE; POIKILOCYTOSIS 2+; POLYCHROMASIA 2+; SEG.NEUTROPHILS 58.2 % (46.0-76.0); SMUDGE CELLS 0.9
[2018-02-07 07:47] LABS: A/G RATIO 1.1 (1.1-1.8); ALBUMIN 3.1 G/DL (3.4-5.0); CHLORIDE 105 MEQ/L (99-109); CREATININE 1.9 MG/DL (0.6-1.3); GFR ESTIMATE (CALCULATED) 37 mL/min/ (58.99-99999); GLOBULINS 2.7 G/DL (2.3-3.5); GLUCOSE 118 mg/dL (70-99); POTASSIUM 4.3 MEQ/L (3.7-5.4); SODIUM 143 MEQ/L (136-147); TOTAL PROTEIN 5.8 G/DL (6.4-8.2); UREA NITROGEN (BUN) 69 mg/dL (9-23)
[2018-02-07 15:29] LABS: ALBUMIN 2.84 G/DL (3.6-4.9); ALPHA-1 GLOBULIN 0.34 G/DL (0.15-0.40); ALPHA-2 GLOBULIN 0.78 G/DL (0.45-0.85); BETA-GLOBULIN 0.88 G/DL (0.65-1.15); GAMMA-GLOBULIN 0.96 G/DL (0.60-1.35)
[2018-02-08 03:04] VITALS: BP 135/61
[2018-02-08 06:17] LABS: BASOPHIL (%) 0.3 % (0-1); EOSINOPHIL (%) 0.8 % (0-5); EOSINOPHIL COUNT 0.1 K/uL (0-0.3); HEMATOCRIT 27.6 % (38.0-50.0); HEMOGLOBIN 8.6 G/DL (12.5-16.6); IMMATURE GRANULOCYTE (%) 3.9 % (0.0-0.7); LYMPHOCYTE (%) 13.5 % (15-42); LYMPHOCYTE COUNT 1.7 K/uL (1.0-2.8); MCHC 31.2 G/DL (30.0-36.0); MCV 89.9 FL (86-99); MONOCYTE (%) 8.4 % (3-12); MONOCYTE COUNT 1.1 K/uL (0-0.8); NEUTROPHIL (%) 73.1 % (45-76); NEUTROPHIL COUNT 9.5 K/uL (1.8-6.4); PLATELET COUNT 159 K/uL (156-360); RBC DIS.WIDTH-CV 15.9 % (11.8-14.6); RBC DIS.WIDTH-SD 51.6 % (39-53); RED BLOOD COUNT 3.07 M/uL (4.00-5.50); WHITE BLOOD COUNT 12.9 K/uL (4.1-10.2)
[2018-02-08 06:19] LABS: INTER. NORMALIZED RATIO 2.8
[2018-02-08 06:39] LABS: CHLORIDE 105 MEQ/L (99-109); CREATININE 1.9 MG/DL (0.6-1.3); GFR ESTIMATE (CALCULATED) 37 mL/min/ (58.99-99999); GLUCOSE 116 mg/dL (70-99); POTASSIUM 4.6 MEQ/L (3.7-5.4); SODIUM 141 MEQ/L (136-147); UREA NITROGEN (BUN) 73 mg/dL (9-23)
[2018-02-08 08:21] VITALS: BP 140/64
[2018-02-08 11:34] VITALS: BP 131/59
[2018-02-08 16:07] VITALS: BP 113/60
[2018-02-08 19:35] VITALS: BP 98/55
[2018-02-08 22:50] VITALS: BP 132/61
[2018-02-09 04:15] VITALS: BP 144/68
[2018-02-09 06:22] LABS: INTER. NORMALIZED RATIO 2.7
[2018-02-09 07:17] VITALS: BP 149/83
[2018-02-09 08:31] LABS: IRON 29 MCG/DL (35-150); TRANSFERRIN (TIBC) 232.6 mg/dL (215-380); TRANSFERRIN SATUR. 12 % (20-55)
[2018-02-09 11:25] LABS: HEMOGLOBIN 8.6 G/DL (12.5-16.6); MCH 28.8 PG (29.0-34.0); MCHC 31.9 G/DL (30.0-36.0); MCV 90.3 FL (86-99); PLATELET COUNT 148 K/uL (156-360); RBC DIS.WIDTH-CV 16.3 % (11.8-14.6); RBC DIS.WIDTH-SD 53.1 % (39-53); RED BLOOD COUNT 2.99 M/uL (4.00-5.50); WHITE BLOOD COUNT 11.1 K/uL (4.1-10.2)
[2018-02-09 11:48] LABS: CHLORIDE 103 MEQ/L (99-109); CREATININE 1.6 MG/DL (0.6-1.3); GFR ESTIMATE (CALCULATED) 45 mL/min/ (58.99-99999); GLUCOSE 144 mg/dL (70-99); SODIUM 137 MEQ/L (136-147); UREA NITROGEN (BUN) 60 mg/dL (9-23)
[2018-02-09 11:54] VITALS: BP 149/60
[2018-02-09 19:40] VITALS: BP 132/62
[2018-02-09 22:10] VITALS: BP 130/59
[2018-02-10 03:35] VITALS: BP 144/65
[2018-02-10 05:39] LABS: HEMATOCRIT 25.7 % (38.0-50.0); HEMOGLOBIN 8.1 G/DL (12.5-16.6); MCH 28.4 PG (29.0-34.0); MCHC 31.5 G/DL (30.0-36.0); MCV 90.2 FL (86-99); PLATELET COUNT 150 K/uL (156-360); RBC DIS.WIDTH-CV 15.9 % (11.8-14.6); RBC DIS.WIDTH-SD 51.8 % (39-53); RED BLOOD COUNT 2.85 M/uL (4.00-5.50); WHITE BLOOD COUNT 11.1 K/uL (4.1-10.2)
[2018-02-10 05:42] LABS: INTER. NORMALIZED RATIO 2.3
[2018-02-10 08:54] VITALS: BP 116/56
[2018-02-10 12:31] VITALS: BP 106/54
[2018-02-10 16:36] VITALS: BP 129/60
[2018-02-10 19:15] VITALS: BP 109/55
[2018-02-10 23:00] VITALS: BP 118/56
[2018-02-11 03:30] VITALS: BP 104/52
[2018-02-11 05:31] LABS: HEMATOCRIT 24.9 % (38.0-50.0); MCH 29.2 PG (29.0-34.0); MCHC 32.1 G/DL (30.0-36.0); MCV 90.9 FL (86-99); NRBC (%) 0.2 /100 WBC (0-0); PLATELET COUNT 158 K/uL (156-360); RBC DIS.WIDTH-SD 52.3 % (39-53); RED BLOOD COUNT 2.74 M/uL (4.00-5.50); WHITE BLOOD COUNT 13.8 K/uL (4.1-10.2)
[2018-02-11 05:42] LABS: INTER. NORMALIZED RATIO 2.1
[2018-02-11 05:59] LABS: CHLORIDE 109 MEQ/L (99-109); CREATININE 1.8 MG/DL (0.6-1.3); GFR ESTIMATE (CALCULATED) 40 mL/min/ (58.99-99999); GLUCOSE 123 mg/dL (70-99); POTASSIUM 4.1 MEQ/L (3.7-5.4); SODIUM 140 MEQ/L (136-147); UREA NITROGEN (BUN) 63 mg/dL (9-23)
[2018-02-11 09:00] VITALS: BP 119/58
[2018-02-11] MEDS ORDERED: PREDNISONE20 MG PO (10:07)
[2018-02-11] MEDS ORDERED: FAMOTIDINE20 MG PO (10:07)
[2018-02-11] MEDS ORDERED: NOVOLOG 10100 UNITS/ SC (10:07)
[2018-02-11] MEDS ORDERED: FINASTERIDE5 MG PO (10:07)
[2018-02-11] MEDS ORDERED: COUMADIN1 MG PO (10:19)
[2018-02-11] MEDS ORDERED: ARANESP60 MCG/0.3 SC (10:19)
== END 2018-02-11 11:03 | DRG 189 ==
LOC: EME → EDBD 08:49 → EME 08:49 → 4WEST 10:15 → EDOF 10:15 → 4EAST 10:15 → 2EAST 10:15 → ENRESERV 10:47 → 2EAST 12:10 → 4WEST 01-28 04:52 → ENRESERV 01-29 16:34 → 4EAST 01-29 20:38
PROVIDERS: Emergency Medicine; Family Medicine; Hospitalist; Internal Medicine; Internal Medicine Nephrology; Student in an Organized Health Care Education/Training Program; Surgery
PROC: 5A09357 Assistance with Respiratory Ventilation, Less than 24 Consecutive Hours, Continuous Positive Airway Pressure (ICD-10-PCS; principal; 2018-01-28)
DX: J96.21 Acute and chronic respiratory failure with hypoxia (principal); J44.1 Chronic obstructive pulmonary disease with (acute) exacerbation; I82.401 Acute embolism and thrombosis of unspecified deep veins of right lower extremity; J44.0 Chronic obstructive pulmonary disease with (acute) lower respiratory infection; J18.9 Pneumonia, unspecified organism; N17.9 Acute kidney failure, unspecified; N14.1 Nephropathy induced by other drugs, medicaments and biological substances; T50.8X5A Adverse effect of diagnostic agents, initial encounter; E87.2 Acidosis; I47.2 Ventricular tachycardia; T17.590A Other foreign object in bronchus causing asphyxiation, initial encounter; I13.0 Hypertensive heart and chronic kidney disease with heart failure and stage 1 through stage 4 chronic kidney disease, or unspecified chronic kidney disease; I50.9 Heart failure, unspecified; N18.3 Chronic kidney disease, stage 3 (moderate); E86.0 Dehydration; N13.30 Unspecified hydronephrosis; E11.22 Type 2 diabetes mellitus with diabetic chronic kidney disease; E11.51 Type 2 diabetes mellitus with diabetic peripheral angiopathy without gangrene; Z99.81 Dependence on supplemental oxygen; I95.9 Hypotension, unspecified; I27.20 Pulmonary hypertension, unspecified; I34.0 Nonrheumatic mitral (valve) insufficiency; D63.1 Anemia in chronic kidney disease; D50.9 Iron deficiency anemia, unspecified; N40.1 Benign prostatic hyperplasia with lower urinary tract symptoms; R31.0 Gross hematuria; R33.8 Other retention of urine; E03.9 Hypothyroidism, unspecified; I25.10 Atherosclerotic heart disease of native coronary artery without angina pectoris; E78.5 Hyperlipidemia, unspecified; G89.29 Other chronic pain; M54.5 Low back pain; K21.9 Gastro-esophageal reflux disease without esophagitis; L30.9 Dermatitis, unspecified; M19.90 Unspecified osteoarthritis, unspecified site; F32.9 Major depressive disorder, single episode, unspecified; F41.9 Anxiety disorder, unspecified; Z79.01 Long term (current) use of anticoagulants; Z87.01 Personal history of pneumonia (recurrent); Z99.3 Dependence on wheelchair; Z87.891 Personal history of nicotine dependence
CPT/HCPCS: 36600; 71045; 71275; 76770; 80048; 80048 91; 80053; 80202; 81003; 82565; 82570; 82803; 82948; 83036; 83540; 83605; 83735; 83880; 83883 90; 84100; 84145 90; 84156; 84165; 84466; 84484; 84520; 85025; 85027; 85610; 85730; 87040; 87641; 93005; 93970; 94002; 94003; 94640; 94640 76; 94667; 94668; 94669; 94760; 94799; 99202; 99281; 99285; A6214; J0456; J0692; J1644; J1756; J1815; J1940; J2270; J2930; J3370; J7040; J7050; J7512; S0028

== ENCOUNTER 2018-02-25 05:45 | Observation (INO) | payer OTHER ==
[~2018-02-25] VITALS: Ht 175.3 cm; Wt 91.2 kg
[~2018-02-25 05:45] MED LIST changes: +ARANESP60 MCG/0.3 SC; +COUMADIN1 MG PO; +FAMOTIDINE20 MG PO; +NOVOLOG 10100 UNITS/ SC; +PREDNISONE20 MG PO
[2018-02-25 06:15] LABS: HEMATOCRIT 28.2 % (38.0-50.0); MCH 29.7 PG (29.0-34.0); MCHC 31.9 G/DL (30.0-36.0); MCV 93.1 FL (86-99); PLATELET COUNT 157 K/uL (156-360); RBC DIS.WIDTH-CV 16.5 % (11.8-14.6); RBC DIS.WIDTH-SD 56.5 % (39-53); RED BLOOD COUNT 3.03 M/uL (4.00-5.50); WHITE BLOOD COUNT 6.2 K/uL (4.1-10.2)
[2018-02-25 06:26] LABS: CHLORIDE 106 mEq/L (99-109); POTASSIUM 3.9 mEq/L (3.7-5.4); SODIUM 146 mEq/L (136-147)
[2018-02-25 06:28] LABS: GLUCOSE 97 mg/dL (70-99)
[2018-02-25 06:32] LABS: CREATININE 1.5 mg/dL (0.6-1.3); GFR ESTIMATE (CALCULATED) 49 mL/min/ (58.99-99999)
[2018-02-25 06:33] LABS: UREA NITROGEN (BUN) 39 mg/dL (9-23)
[2018-02-25 06:37] LABS: TROP-I INTERPRETATION NEGATIVE; TROPONIN-I 0.07 ng/mL (0.0-0.30)
[2018-02-25 09:00] VITALS: BP 153/72
[2018-02-25 12:03] VITALS: BP 167/74
[2018-02-25] MEDS ORDERED: XARELTO15 MG PO (13:21)
[2018-02-25] MEDS ORDERED: DELTASONE20 M1 PO (13:23)
[2018-02-25] MEDS ORDERED: PROSCAR5 MG PO (13:24)
[2018-02-25] MEDS ORDERED: PEPCID20 MG PO (13:24)
[2018-02-25 14:20] LABS: TROP-I INTERPRETATION NEGATIVE; TROPONIN-I 0.08 ng/mL (0.0-0.30)
[2018-02-25 16:00] VITALS: BP 162/71
[2018-02-25 20:18] VITALS: BP 173/79
[2018-02-25 22:09] LABS: TROP-I INTERPRETATION NEGATIVE; TROPONIN-I 0.07 ng/mL (0.0-0.30)
[2018-02-25 23:29] VITALS: BP 138/65
[2018-02-26 03:54] VITALS: BP 122/58
[2018-02-26 05:26] LABS: HEMATOCRIT 29.1 % (38.0-50.0); HEMOGLOBIN 8.7 G/DL (12.5-16.6); MCH 28.2 PG (29.0-34.0); MCHC 29.9 G/DL (30.0-36.0); MCV 94.5 FL (86-99); PLATELET COUNT 155 K/uL (156-360); RBC DIS.WIDTH-CV 16.4 % (11.8-14.6); RBC DIS.WIDTH-SD 56.8 % (39-53); RED BLOOD COUNT 3.08 M/uL (4.00-5.50); WHITE BLOOD COUNT 7.1 K/uL (4.1-10.2)
[2018-02-26 05:50] LABS: TROP-I INTERPRETATION NEGATIVE; TROPONIN-I 0.08 ng/mL (0.0-0.30)
[2018-02-26 05:53] LABS: CHLORIDE 104 MEQ/L (99-109); CREATININE 1.7 MG/DL (0.6-1.3); GFR ESTIMATE (CALCULATED) 42 mL/min/ (58.99-99999); GLUCOSE 109 mg/dL (70-99); POTASSIUM 3.9 MEQ/L (3.7-5.4); SODIUM 142 MEQ/L (136-147); UREA NITROGEN (BUN) 33 mg/dL (9-23)
[2018-02-26] MEDS ORDERED: BACTRIM,SEPT1 TABLET PO (10:21)
[2018-02-26 11:27] VITALS: BP 151/70
== END 2018-02-26 13:00 ==
LOC: EME → EDBD 05:45 → EDOF 07:43 → 4SOUTH 07:43 → ENRESERV 08:13 → 4SOUTH 09:00
PROVIDERS: Family Medicine
DX: R07.89 Other chest pain (principal); J44.0 Chronic obstructive pulmonary disease with (acute) lower respiratory infection; J20.9 Acute bronchitis, unspecified; Z99.81 Dependence on supplemental oxygen; I25.10 Atherosclerotic heart disease of native coronary artery without angina pectoris; E87.6 Hypokalemia; E11.22 Type 2 diabetes mellitus with diabetic chronic kidney disease; I13.0 Hypertensive heart and chronic kidney disease with heart failure and stage 1 through stage 4 chronic kidney disease, or unspecified chronic kidney disease; I50.9 Heart failure, unspecified; N18.3 Chronic kidney disease, stage 3 (moderate); E03.9 Hypothyroidism, unspecified; G89.4 Chronic pain syndrome; Z98.890 Other specified postprocedural states; E78.5 Hyperlipidemia, unspecified; E11.51 Type 2 diabetes mellitus with diabetic peripheral angiopathy without gangrene; N40.0 Benign prostatic hyperplasia without lower urinary tract symptoms; F41.9 Anxiety disorder, unspecified; F32.9 Major depressive disorder, single episode, unspecified; K21.9 Gastro-esophageal reflux disease without esophagitis; Z86.718 Personal history of other venous thrombosis and embolism; Z79.01 Long term (current) use of anticoagulants; Z66 Do not resuscitate; Z88.0 Allergy status to penicillin; M54.2 Cervicalgia; D64.9 Anemia, unspecified
CPT/HCPCS: 71046; 80048; 82948; 84484; 85027; 93005; 94640; 94799; 99281; 99285; G0378; J1815; J7512